=== PATIENT | female | born 1985 | race Caucasian/White ===

== ENCOUNTER 2018-06-28 11:27 | Emergency (ER) | payer OTHER, MEDICAID, SELFPAY ==
[2018-06-28 11:41] VITALS: BP 152/109; PULSE 99; RESP 20; TEMP 37.2; O2SAT 100; BMI 27.4
--- NOTE | 2018-06-28 12:06 | ED.UPPEXIN ---
HPI - Extremity Injury (Upper) <Katy Rios PA-C - Last Filed: 06/28/18 18:14> General Chief Complaint: Extremity Injury, Upper Stated Complaint: FELL, CHEST/ARM/BACK HURTS, HARD TO BREATH Time Seen by Provider: 06/28/18 11:50 Source: patient Mode of arrival: ambulatory Limitations: no limitations History of Present Illness HPI narrative: This 32-year-old female states that she fell yesterday, tripping on a wheelchair ramp and landed on her right side. She states that she took most of the impact on her right posterior shoulder, trunk, and upper arm area. She states she did not hit her head or pass out. She states that she really did not have significant pain at the time and went about her day. She states that last night, she started to have pain in her chest which was worse with taking a deep breath. She also has pain on the left side of her neck today that hurts with movement. She states that the chest pain was actually worse last night but still present today. Also exacerbated by movement. She denies any jackie dyspnea. She denies any weakness or paresthesia in the extremities or other new complaints. She took some aspirin this morning, has not taken other medications. Related Data Previous Rx's Medication Instructions Recorded cyclobenzaprine 10 mg PO Q8H PRN #14 tab 06/28/18 hydrocodone-acetaminophen [[place]] 1 tab PO Q6H PRN #8 tab 06/28/18 ibuprofen 800 mg PO TID PRN #30 tab 06/28/18 Allergies Allergy/AdvReac Type Severity Reaction Status Date / Time ampicillin [From UNASYN] Allergy Unknown Verified 06/28/18 11:44 sulbactam [From UNASYN] Allergy Unknown Verified 06/28/18 11:44 Review of Systems <Katy Rios PA-C - Last Filed: 06/28/18 18:14> Review of Systems All systems reviewed & are unremarkable except as noted in HPI and below Exam <Katy Riso PA-C - Last Filed: 06/28/18 18:14> Narrative Exam Narrative: GENERAL APPEARANCE: Patient appears somewhat uncomfortable, in no distress NECK/THYROID: Neck supple LUNGS: Clear to auscultation bilaterally, splinting noted CHEST: No sternal TTP HEART: Regular rate and rhythm without murmur, normal S1, S2, no S3 or S4. EXTREMITIES: No cyanosis or edema. NEUROLOGIC: Alert and oriented, normal speech, and coordination. MS: No tenderness over the cervical spine. Tender over the left mid to lateral posterior cervical strap musculature. Reduced neck rotation and lateral bend bilaterally secondary to tenderness. Normal range of motion of the upper extremities. Initial Vital Signs Initial Vital Signs: Vital Signs Temperature 98.9 F 06/28/18 11:41 Pulse Rate 99 H 06/28/18 11:41 Respiratory Rate 20 06/28/18 11:41 Blood Pressure 152/109 H 06/28/18 11:41 Pulse Oximetry 100 06/28/18 11:41 <Alessio Ware DO - Last Filed: 06/28/18 18:57> Initial Vital Signs Initial Vital Signs: Vital Signs Temperature 98.9 F 06/28/18 11:41 Pulse Rate 99 H 06/28/18 11:41 Respiratory Rate 20 06/28/18 11:41 Blood Pressure 152/109 H 06/28/18 11:41 Pulse Oximetry 100 06/28/18 11:41 Course <Katy Rios PA-C - Last Filed: 06/28/18 18:14> Additional Information: The patient is feeling better prior to departure. No acute findings on EKG or chest x-ray. She agrees to return if any acutely worsening symptoms Orders Ordered: ED Orders 06/28/18 12:13 XR chest 2V Stat 06/28/18 12:15 EKG-12 Lead Stat Discontinued Medications Ibuprofen (Advil) 800 mg PO NOW ONE Stop: 06/28/18 12:14 Last Admin: 06/28/18 12:17 Dose: 800 mg Vital Signs - 8 hr 06/28/18 11:41 06/28/18 12:42 06/28/18 13:15 Temperature 98.9 F 98.0 F 98.2 F Pulse Rate 99 H 85 88 Respiratory Rate 20 17 18 Blood Pressure 152/109 H 120/64 Blood Pressure [Right Arm] 125/88 Pulse Oximetry 100 100 99 <Alessio Ware DO - Last Filed: 06/28/18 18:57> Orders Ordered: ED Orders 06/28/18 12:13 XR chest 2V Stat 06/28/18 12:15 EKG-12 Lead Stat Discontinued Medications Ibuprofen (Advil) 800 mg PO NOW ONE Stop: 06/28/18 12:14 Last Admin: 06/28/18 12:17 Dose: 800 mg Vital Signs - 8 hr 06/28/18 11:41 06/28/18 12:42 06/28/18 13:15 Temperature 98.9 F 98.0 F 98.2 F Pulse Rate 99 H 85 88 Respiratory Rate 20 17 18 Blood Pressure 152/109 H 120/64 Blood Pressure [Right Arm] 125/88 Pulse Oximetry 100 100 99 MDM - Extremity Injury (Upper) <Katy Rios PA-C - Last Filed: 06/28/18 18:14> Imaging Data Chest x-ray: Radiologist's impression: [address] [address] XRay Report Signed Patient: Lamar Simmons#: [id number] : 1985Acct:[id number] Age/Sex: 32 / FDate of Service: 06/28/18 Loc: ED Accession Number: [id number] Procedure: XR chest 2V Ordering Provider: Katy Rios P.A-C PROCEDURE: XR CHEST 2V INDICATIONS: fall yesterday, pleuritic pain TECHNIQUE: 2 views of the chest were acquired. COMPARISON: [facility], , XR CXR 2 VIEW, 10/29/2000, 8:53. FINDINGS: Surgical changes and devices: None. Lungs and pleura: No pleural effusions or pneumothorax. Lungs are clear. Mediastinum: Mediastinal contours are normal. Heart size is normal. Bones and chest wall: No displaced rib fractures are seen. No suspicious bony abnormalities. Mild dextroconvex scoliotic curvature is seen. Soft tissues appear unremarkable. IMPRESSION: No displaced rib fracture or pneumothorax can be seen. Dictated by: Anuj Gil M.D. on 06/28/2018 at 11:33 Approved by: Anuj Gil M.D. on 06/28/2018 at 11:33 Discharge Plan Departure Patient Disposition: Home Clinical Impression: Chest wall pain, Acute strain of neck muscle Discharge Date/Time: 06/28/18 13:16 Interventions: ED Discharge Assessment Last Done: 06/28/18 13:15 Instructions: DI for Pleurisy Activity Restrictions/Additional Instructions: I have given clear instructions for pleurisy because they are similar to what we talked about for your chest wall pain (your lungs appear normal on the x-ray and there is no reason to think they are inflamed). I think that your pain today is due to falling and hitting your side (you probably strained muscles around and between your ribs). I think your neck pain is due to strain and awkward sleeping position. Please focus on taking deep breaths several times daily hugging the pillow to help keep your lungs expanded. Take the ibuprofen routinely every 8 hr. Add the muscle relaxant as needed for your neck and the pain pills as needed for your ribs (do not drive while taking either of these as they can make you sleepy). Return as we talked about if you have any acutely worsening symptoms such as feeling short of breath, wheezing, or numbness or weakness. Otherwise, please follow-up with your PCP in a few days for recheck Prescriptions: New cyclobenzaprine 10 mg tablet 10 mg PO Q8H PRN (Reason: muscle spasm/neck pain) Qty: 14 RF: 0 ibuprofen 800 mg tablet 800 mg PO TID PRN (Reason: pain) Qty: 30 RF: 0 hydrocodone-acetaminophen [[place]] 5-325 mg tablet 1 tab PO Q6H PRN (Reason: acute rib pain) Qty: 8 RF: 0 Referrals: MT. Sami MCCULLOUGH [Other] <Alessio Ware DO - Last Filed: 06/28/18 18:57> [facility] ED Attending [place] Attestation: I was immediately available in the department for consultation. Documentation has been reviewed. I agree with assessment and plan.
--- NOTE | 2018-06-28 12:13 | DI.RAD.S_ITS ---
PROCEDURE: XR CHEST 2V INDICATIONS: fall yesterday, pleuritic pain TECHNIQUE: 2 views of the chest were acquired. COMPARISON: [facility], , XR CXR 2 VIEW, 10/29/2000, 8:53. FINDINGS: Surgical changes and devices: None. Lungs and pleura: No pleural effusions or pneumothorax. Lungs are clear. Mediastinum: Mediastinal contours are normal. Heart size is normal. Bones and chest wall: No displaced rib fractures are seen. No suspicious bony abnormalities. Mild dextroconvex scoliotic curvature is seen. Soft tissues appear unremarkable. IMPRESSION: No displaced rib fracture or pneumothorax can be seen. Dictated by: Anuj Gil M.D. on 06/28/2018 at 11:33 Approved by: Anuj Gil M.D. on 06/28/2018 at 11:33
[2018-06-28] MEDS: IBUPROFEN 400 MG TABLET 800 MG PO (12:17)
--- NOTE | 2018-06-28 12:20 | PC.NURSE ---
Pt c/o CP and pain with inspiration. Called RT for EKG. no change in pain with palpation. Pt fell on her right side. All her pain is in left side starting in chest and moving to neck, shoulder, and left arm.
--- NOTE | 2018-06-28 12:21 | ED_ITS ---
Addendum entered and electronically signed by Kayt Rios P.A-C 06/28/18 18:14: EKG SHOWS NORMAL SINUS RHYTHM WITH RATE 78, NORMAL AXIS Original Note: HPI - Extremity Injury (Upper) <Katy Rios PA-C - Last Filed: 06/28/18 18:14> General Chief Complaint: Extremity Injury, Upper Stated Complaint: FELL, CHEST/ARM/BACK HURTS, HARD TO BREATH Time Seen by Provider: 06/28/18 11:50 Source: patient Mode of arrival: ambulatory Limitations: no limitations History of Present Illness HPI narrative: This 32-year-old female states that she fell yesterday, tripping on a wheelchair ramp and landed on her right side. She states that she took most of the impact on her right posterior shoulder, trunk, and upper arm area. She states she did not hit her head or pass out. She states that she really did not have significant pain at the time and went about her day. She states that last night, she started to have pain in her chest which was worse with taking a deep breath. She also has pain on the left side of her neck today that hurts with movement. She states that the chest pain was actually worse last night but still present today. Also exacerbated by movement. She denies any jackie dyspnea. She denies any weakness or paresthesia in the extremities or other new complaints. She took some aspirin this morning, has not taken other medications. Related Data Previous Rx's Medication Instructions Recorded cyclobenzaprine 10 mg PO Q8H PRN #14 tab 06/28/18 hydrocodone-acetaminophen [[place]] 1 tab PO Q6H PRN #8 tab 06/28/18 ibuprofen 800 mg PO TID PRN #30 tab 06/28/18 Allergies Allergy/AdvReac Type Severity Reaction Status Date / Time ampicillin [From UNASYN] Allergy Unknown Verified 06/28/18 11:44 sulbactam [From UNASYN] Allergy Unknown Verified 06/28/18 11:44 Review of Systems <Katy Rios PA-C - Last Filed: 06/28/18 18:14> Review of Systems All systems reviewed & are unremarkable except as noted in HPI and below Exam <Katy Rios PA-C - Last Filed: 06/28/18 18:14> Narrative Exam Narrative: GENERAL APPEARANCE: Patient appears somewhat uncomfortable, in no distress NECK/THYROID: Neck supple LUNGS: Clear to auscultation bilaterally, splinting noted CHEST: No sternal TTP HEART: Regular rate and rhythm without murmur, normal S1, S2, no S3 or S4. EXTREMITIES: No cyanosis or edema. NEUROLOGIC: Alert and oriented, normal speech, and coordination. MS: No tenderness over the cervical spine. Tender over the left mid to lateral posterior cervical strap musculature. Reduced neck rotation and lateral bend bilaterally secondary to tenderness. Normal range of motion of the upper extremities. Initial Vital Signs Initial Vital Signs: Vital Signs Temperature 98.9 F 06/28/18 11:41 Pulse Rate 99 H 06/28/18 11:41 Respiratory Rate 20 06/28/18 11:41 Blood Pressure 152/109 H 06/28/18 11:41 Pulse Oximetry 100 06/28/18 11:41 <Alessio Ware DO - Last Filed: 06/28/18 18:57> Initial Vital Signs Initial Vital Signs: Vital Signs Temperature 98.9 F 06/28/18 11:41 Pulse Rate 99 H 06/28/18 11:41 Respiratory Rate 20 06/28/18 11:41 Blood Pressure 152/109 H 06/28/18 11:41 Pulse Oximetry 100 06/28/18 11:41 Course <Katy Rios PA-C - Last Filed: 06/28/18 18:14> Additional Information: The patient is feeling better prior to departure. No acute findings on EKG or chest x-ray. She agrees to return if any acutely worsening symptoms Orders Ordered: ED Orders 06/28/18 12:13 XR chest 2V Stat 06/28/18 12:15 EKG-12 Lead Stat Discontinued Medications Ibuprofen (Advil) 800 mg PO NOW ONE Stop: 06/28/18 12:14 Last Admin: 06/28/18 12:17 Dose: 800 mg Vital Signs - 8 hr 06/28/18 11:41 06/28/18 12:42 06/28/18 13:15 Temperature 98.9 F 98.0 F 98.2 F Pulse Rate 99 H 85 88 Respiratory Rate 20 17 18 Blood Pressure 152/109 H 120/64 Blood Pressure [Right Arm] 125/88 Pulse Oximetry 100 100 99 <DO Awais Kelly Last Filed: 06/28/18 18:57> Orders Ordered: ED Orders 06/28/18 12:13 XR chest 2V Stat 06/28/18 12:15 EKG-12 Lead Stat Discontinued Medications Ibuprofen (Advil) 800 mg PO NOW ONE Stop: 06/28/18 12:14 Last Admin: 06/28/18 12:17 Dose: 800 mg Vital Signs - 8 hr 06/28/18 11:41 06/28/18 12:42 06/28/18 13:15 Temperature 98.9 F 98.0 F 98.2 F Pulse Rate 99 H 85 88 Respiratory Rate 20 17 18 Blood Pressure 152/109 H 120/64 Blood Pressure [Right Arm] 125/88 Pulse Oximetry 100 100 99 MDM - Extremity Injury (Upper) <Katy Rios PA-C - Last Filed: 06/28/18 18:14> Imaging Data Chest x-ray: Radiologist's impression: [place] [address] XRay Report Signed Patient: Lamar Simmons#: [id number] : 1985Acct:[id number] Age/Sex: 32 / FDate of Service: 06/28/18 Loc: ED Accession Number: [id number] Procedure: XR chest 2V Ordering Provider: Katy Rios P.A-C PROCEDURE: XR CHEST 2V INDICATIONS: fall yesterday, pleuritic pain TECHNIQUE: 2 views of the chest were acquired. COMPARISON: [facility], , XR CXR 2 VIEW, 10/29/2000, 8:53. FINDINGS: Surgical changes and devices: None. Lungs and pleura: No pleural effusions or pneumothorax. Lungs are clear. Mediastinum: Mediastinal contours are normal. Heart size is normal. Bones and chest wall: No displaced rib fractures are seen. No suspicious bony abnormalities. Mild dextroconvex scoliotic curvature is seen. Soft tissues appear unremarkable. IMPRESSION: No displaced rib fracture or pneumothorax can be seen. Dictated by: Anuj Gil M.D. on 06/28/2018 at 11:33 Approved by: Anuj Gil M.D. on 06/28/2018 at 11:33 Discharge Plan Departure Patient Disposition: Home Clinical Impression: Chest wall pain, Acute strain of neck muscle Discharge Date/Time: 06/28/18 13:16 Interventions: ED Discharge Assessment Last Done: 06/28/18 13:15 Instructions: DI for Pleurisy Activity Restrictions/Additional Instructions: I have given clear instructions for pleurisy because they are similar to what we talked about for your chest wall pain (your lungs appear normal on the x-ray and there is no reason to think they are inflamed). I think that your pain today is due to falling and hitting your side (you probably strained muscles around and between your ribs). I think your neck pain is due to strain and awkward sleeping position. Please focus on taking deep breaths several times daily hugging the pillow to help keep your lungs expanded. Take the ibuprofen routinely every 8 hr. Add the muscle relaxant as needed for your neck and the pain pills as needed for your ribs (do not drive while taking either of these as they can make you sleepy). Return as we talked about if you have any acutely worsening symptoms such as feeling short of breath, wheezing, or numbness or weakness. Otherwise, please follow-up with your PCP in a few days for recheck Prescriptions: New cyclobenzaprine 10 mg tablet 10 mg PO Q8H PRN (Reason: muscle spasm/neck pain) Qty: 14 RF: 0 ibuprofen 800 mg tablet 800 mg PO TID PRN (Reason: pain) Qty: 30 RF: 0 hydrocodone-acetaminophen [[place]] 5-325 mg tablet 1 tab PO Q6H PRN (Reason: acute rib pain) Qty: 8 RF: 0 Referrals: MT. Sami MCCULLOUGH [Other] <Alessio Ware DO - Last Filed: 06/28/18 18:57> [facility] [place] Attestation: I was immediately available in the department for consultation. Documentation has been reviewed. I agree with assessment and plan.
[2018-06-28 12:42] VITALS: BP 125/88; PULSE 85; RESP 17; TEMP 36.7; O2SAT 100
[2018-06-28 13:15] VITALS: BP 120/64; PULSE 88; RESP 18; TEMP 36.8; O2SAT 99
== END 2018-06-28 13:16 | disposition home or self-care (01) ==
PROVIDERS: Emergency Provider Internal Medicine
DX: R07.89 Other chest pain (principal); S16.1XXA Strain of muscle, fascia and tendon at neck level, initial encounter; W01.0XXA Fall on same level from slipping, tripping and stumbling without subsequent striking against object, initial encounter
CPT/HCPCS: 71046; 93005; 99282; 99284

== ENCOUNTER 2018-08-06 14:25 | Emergency (ER) | payer OTHER, MEDICAID, SELFPAY ==
[2018-08-06 14:38] VITALS: BP 160/112; PULSE 100; RESP 15; TEMP 36.7; O2SAT 99; BMI 26.6
--- NOTE | 2018-08-06 16:19 | ED_ITS ---
HPI - Wound/Laceration <DEVIN Brown Last Filed: 08/06/18 21:49> General Chief Complaint: Wound/Laceration Stated Complaint: Cut finger Time Seen by Provider: 08/06/18 16:16 Source: patient Mode of arrival: ambulatory Limitations: no limitations History of Present Illness HPI narrative: Patient states that she went to start a [employer] and the kick start stuck, causing able to push back and hit her finger. She has some lacerations that were bleeding quite a bit initially. She denies any other injury. It has been 5-10 years since her last tetanus vaccine. Related Data Home Medications Medication Instructions Recorded Confirmed No Known Home Medications 08/06/18 08/06/18 Allergies Allergy/AdvReac Type Severity Reaction Status Date / Time ampicillin [From UNASYN] Allergy Unknown Verified 08/06/18 14:38 sulbactam [From UNASYN] Allergy Unknown Verified 08/06/18 14:38 Review of Systems <DEVIN Brown Last Filed: 08/06/18 21:49> Review of Systems All systems reviewed & are unremarkable except as noted in HPI and below Exam <DEVIN Brown Last Filed: 08/06/18 21:49> Narrative Exam Narrative: GENERAL APPEARANCE: Patient sitting comfortably, in no distress. LUNGS: Clear to auscultation bilaterally. HEART: Rate and rhythm regular without murmur, normal S1 and S2, no S3 or S4. DERMATOLOGIC: Left middle finger just proximal to the PIP there is a 1 cm curvilinear shallow laceration with no gap, appears to be no more than 2 mm in depth. There is a 2nd superficial laceration on the dorsal surface 6 mm in length with no gap appears to be less than 1 mm in depth. NEUROVASCULAR: Left hand fingers are warm and pink with brisk cap refill, sensation is grossly intact MUSCULOSKELETAL: Left middle finger a tendon strength is intact against resistance in all harmon Initial Vital Signs Initial Vital Signs: Vital Signs Temperature 98.0 F 08/06/18 14:38 Pulse Rate 100 H 08/06/18 14:38 Respiratory Rate 15 08/06/18 14:38 Blood Pressure 160/112 H 08/06/18 14:38 Pulse Oximetry 99 08/06/18 14:38 <Martita Cyr DO - Last Filed: 12/22/18 20:12> Initial Vital Signs Initial Vital Signs: Vital Signs Temperature 98.0 F 08/06/18 14:38 Pulse Rate 100 H 08/06/18 14:38 Respiratory Rate 15 08/06/18 14:38 Blood Pressure 160/112 H 08/06/18 14:38 Pulse Oximetry 99 08/06/18 14:38 Course <Katy Rios PA-C - Last Filed: 08/06/18 21:49> Additional Information: Patient's avulsions appear superficial with no gap. Thoroughly cleaned and scrubbed with a surgical brush, no foreign body visible following cleaning. These were Steri-Strips and placed in a splint to aid in healing. Orders Ordered: Discontinued Medications Diphtheria/Tetanus/Acell Pertussis (Adacel) 0.5 ml IM .ONCE ONE Stop: 08/06/18 14:42 Last Admin: 08/06/18 16:38 Dose: 0.5 ml Vital Signs - 8 hr 08/06/18 14:38 Temperature 98.0 F Pulse Rate 100 H Respiratory Rate 15 Blood Pressure 160/112 H Pulse Oximetry 99 <Martita Cyr DO - Last Filed: 08/10/18 20:12> Orders Ordered: Discontinued Medications Diphtheria/Tetanus/Acell Pertussis (Adacel) 0.5 ml IM .ONCE ONE Stop: 08/06/18 14:42 Last Admin: 08/06/18 16:38 Dose: 0.5 ml Vital Signs - 8 hr 08/06/18 14:38 Temperature 98.0 F Pulse Rate 100 H Respiratory Rate 15 Blood Pressure 160/112 H Pulse Oximetry 99 Discharge Plan Departure Patient Disposition: Home Clinical Impression: Laceration of finger of left hand Discharge Date/Time: 08/06/18 17:55 Interventions: ED Discharge Assessment Last Done: 08/06/18 17:22 Instructions: DI for Avulsion Laceration (Not Requiring Sutures) Activity Restrictions/Additional Instructions: The cuts on your fingers do not appear to have a big gap (they are what we call an avulsion or little flap) where the skin is able to come together. This should heal with the steri-strips we have put on as long as you keep pressure off of the area. Keep your finger in the splint at all times though it is okay to rinse off quickly when you shower and pat dry. The wounds looked well cleaned , but please monitor for any signs of infection and see your PCP, urgent care, or return to ED if any, such as redness, pus draining, or fever. The splint will likely need to stay on for 7-10 days until this is healed. Prescriptions: No Action No Known Home Medications RF: 0 Referrals: Kingston Marcelo, Ramana Gallardo [Other] <Martita Cyr DO - Last Filed: 08/10/18 20:12> [facility] ED Attending Cosign[employer] Attestation: I was immediately available in the department for consultation. Documentation has been reviewed. I agree with assessment and plan.
[2018-08-06] MEDS: TET,DIPH,PERTUSS(ACELL),VAC/PF 0.5 ML SYRINGE IM (16:38)
== END 2018-08-06 17:55 | disposition home or self-care (01) ==
PROVIDERS: Emergency Provider Internal Medicine
DX: S61.213A Laceration without foreign body of left middle finger without damage to nail, initial encounter (principal); W26.8XXA Contact with other sharp object(s), not elsewhere classified, initial encounter
CPT/HCPCS: 29130; 90471; 99283; 90715

== ENCOUNTER 2018-08-27 19:54 | Emergency (ER) | payer OTHER, MEDICAID, SELFPAY ==
[2018-08-27 20:00] VITALS: BP 171/108; PULSE 98; RESP 14; TEMP 36.7; O2SAT 100; BMI 27.4
[2018-08-27 20:30] VITALS: BP 171/108; PULSE 98; RESP 14; TEMP 36.7; O2SAT 100; BMI 27.4
--- NOTE | 2018-08-27 20:30 | ED_ITS ---
HPI - Dental/Oral <Katy Rios PA-C - Last Filed: 08/27/18 22:32> General Chief complaint: Dental/Oral Stated complaint: ABSCESS OF JAW Time Seen by Provider: 08/27/18 20:24 Source: patient Mode of arrival: ambulatory Limitations: no limitations History of Present Illness HPI Narrative: This 32-year-old female comes in due to concern for possible dental abscess. She states that she awoke this morning with swelling on the left lower jaw area and a lot of tenderness. 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 She states that she had dental work done more than 10 years ago that was only supposed to last 8 years, and she does not remember biting down on the thing hard, but thinks that she could have lost part of a filling. She has not had a fever today. She states that she does have some pain in her ear, but has not been sick or had any other upper respiratory symptoms such as cough or sore throat. She does not have a dentist currently. Related Data Previous Rx's Medication Instructions Recorded amoxicillin-pot clavulanate 1 tab PO Q12H #14 tab 08/27/18 [Augmentin] ibuprofen 800 mg PO Q8H PRN #30 tab 08/27/18 Allergies Allergy/AdvReac Type Severity Reaction Status Date / Time No Known Drug Allergies Allergy Verified 08/27/18 20:03 Review of Systems <Katy Rios PA-C - Last Filed: 08/27/18 22:32> Review of Systems All systems reviewed & are unremarkable except as noted in HPI and below Exam <Katy Rios PA-C - Last Filed: 08/27/18 22:32> Narrative Exam Narrative: GENERAL APPEARANCE: Patient sitting comfortably, in no distress. HEAD: No sinus TTP. EYES: PERRL, EOMI. EARS: Normal auditory canals, TMS intact with normal light reflexes. ORAL CAVITY:Poor dentition, multiple broken teeth, left 2nd molar black centrally appears to have repair. No tenderness in the tooth itself, but the surrounding gum line is mildly erythematous on both surfaces vs. other teeth. No edema of the gum tissue, no circumscribed area of swelling in the check or jaw. No drainage THROAT: Clear. NECK/THYROID: Neck supple, full range of motion, no cervical lymphadenopathy. LUNGS: Clear to auscultation bilaterally, clear to percussion, no cough on exam. HEART: RRR without murmur, nl S1, S2, no S3 or S4. Initial Vital Signs Initial Vital Signs: Vital Signs Temperature 98.0 F 08/27/18 20:00 Pulse Rate 98 H 08/27/18 20:00 Respiratory Rate 14 08/27/18 20:00 Blood Pressure 171/108 H 08/27/18 20:00 Pulse Oximetry 100 08/27/18 20:00 <Landry Avelar DO - Last Filed: 08/27/18 22:50> Initial Vital Signs Initial Vital Signs: Vital Signs Temperature 98.0 F 08/27/18 20:00 Pulse Rate 98 H 08/27/18 20:00 Respiratory Rate 14 08/27/18 20:00 Blood Pressure 171/108 H 08/27/18 20:00 Pulse Oximetry 100 08/27/18 20:00 Course <Katy Rios PA-C - Last Filed: 08/27/18 22:32> Orders Ordered: Discontinued Medications Amoxicillin/Clavulanate Potassium (Augmentin 875-125 Mg) 1 tab PO NOW ONE Stop: 08/27/18 20:49 Last Admin: 08/27/18 20:58 Dose: 1 tab Ibuprofen (Advil) 800 mg PO NOW ONE Stop: 08/27/18 20:49 Last Admin: 08/27/18 20:57 Dose: 800 mg Vital Signs - 8 hr 08/27/18 20:00 08/27/18 20:30 08/27/18 21:10 Temperature 98.0 F 98.0 F 97.9 F Pulse Rate 98 H 98 H 76 Respiratory Rate 14 14 Blood Pressure 171/108 H 171/108 H Blood Pressure [Left Arm] 173/119 H Pulse Oximetry 100 100 100 <DO Awais Montemayor Last Filed: 08/27/18 22:50> Orders Ordered: Discontinued Medications Amoxicillin/Clavulanate Potassium (Augmentin 875-125 Mg) 1 tab PO NOW ONE Stop: 08/27/18 20:49 Last Admin: 08/27/18 20:58 Dose: 1 tab Ibuprofen (Advil) 800 mg PO NOW ONE Stop: 08/27/18 20:49 Last Admin: 01/08/19 20:57 Dose: 800 mg Vital Signs - 8 hr 08/27/18 20:00 08/27/18 20:30 08/27/18 21:10 Temperature 98.0 F 98.0 F 97.9 F Pulse Rate 98 H 98 H 76 Respiratory Rate 14 14 Blood Pressure 171/108 H 171/108 H Blood Pressure [Left Arm] 173/119 H Pulse Oximetry 100 100 100 Discharge Plan Departure Patient Disposition: Home Clinical Impression: Dental infection, Dental caries Discharge Date/Time: 08/27/18 21:11 Interventions: ED Discharge Assessment Last Done: 08/27/18 21:16 Instructions: DI for Dental Pain Activity Restrictions/Additional Instructions: Please call [facility] 1st thing in the morning and let them know that you were referred from the emergency room and need to follow up for your infection as well as your broken teeth and dental work. Take the next dose of antibiotic in the morning. Continue Ibuprofen 800mg every 8 hours for pain and swelling. You can take tylenol in addition if needed and use Orajel over the counter if you wish. I have sent prescriptions for the ibuprofen and antibiotic to your pharmacy. Prescriptions: New ibuprofen 800 mg tablet 800 mg PO Q8H PRN (Reason: pain) Qty: 30 RF: 0 amoxicillin-pot clavulanate [Augmentin] 875-125 mg tablet 1 tab PO Q12H Qty: 14 RF: 0 Referrals: Ramana Syed [Other] <Landry Avelar DO - Last Filed: 08/27/18 22:50> [facility] [place] Attestation: I was available for consultation during this patient's emergency department encounter
[2018-08-27] MEDS: IBUPROFEN 400 MG TABLET 800 MG PO (20:57)
[2018-08-27] MEDS: AMOXICILLIN/CLAV 875/125 MG 1 TAB PO (20:58)
[2018-08-27 21:10] VITALS: BP 173/119; PULSE 76; TEMP 36.6; O2SAT 100
== END 2018-08-27 21:11 | disposition home or self-care (01) ==
PROVIDERS: Emergency Provider Internal Medicine
DX: K04.7 Periapical abscess without sinus (principal)
CPT/HCPCS: 99282; 99283

== ENCOUNTER 2019-04-10 15:44 | Emergency (ER) | payer OTHER, MEDICAID, SELFPAY ==
[2019-04-10 15:50] VITALS: BP 154/103; PULSE 102; RESP 22; TEMP 36.4; O2SAT 100; BMI 29.1
--- NOTE | 2019-04-10 16:07 | DI.RAD.S_ITS ---
PROCEDURE: XR CHEST 2V INDICATIONS: exposed to rat feces TECHNIQUE: 2 views of the chest were acquired. COMPARISON: [facility], , XR CHEST 2V, 06/28/2018, 12:20. FINDINGS: Surgical changes and devices: None. Lungs and pleura: Lungs are clear. No pleural effusions or pneumothorax. Mediastinum: Mediastinal contours are normal. Heart size is normal. Bones and chest wall: No suspicious bony abnormalities. Soft tissues appear unremarkable. IMPRESSION: Stable chest. No acute cardiopulmonary process is evident. Dictated by: Padilla Foley M.D. on 04/10/2019 at 15:52 Approved by: Padilla Foley M.D. on 04/10/2019 at 15:55
--- NOTE | 2019-04-10 16:13 | PC.NURSE ---
Call to poison control. Orders per their suggestion
[2019-04-10 16:27] LABS: Add Manual Diff / Slide Review NO; Basophils Absolute Auto 100 /uL (0-100); Basophils Percent Auto 1.2 % (0-2); Eosinophils Absolute Auto 100 /uL (0-450); Eosinophils Percent Auto 2.1 % (2-4); Hematocrit 43.2 % (36-46); Hemoglobin 14.6 g/dL (12.0-16.0); Lymphocytes Absolute Auto 1900 /uL (1100-4500); Mean Corpuscular HGB Conc 33.7 % (30-36); Mean Corpuscular Hemoglobin 30.3 PG (26-34); Mean Corpuscular Volume 89.9 fL (80-100); Monocytes Absolute Auto 500 /uL (0-900); Monocytes Percent Auto 11.9 % (3-14); Neutrophils Absolute Auto 1900 /uL (1500-7000); Neutrophils Percent Auto 41.8 % (50-75); Platelet Count 281 X10^3/uL (150-400); Red Cell Distribution Width 12.8 % (11.6-14.8); White Blood Cell Count 4.5 X10^3/uL (4.5-11.0)
[2019-04-10 16:36] LABS: Alanine Aminotransferase 12 IU/L (9-52); Albumin 4.2 g/dL (3.5-5.0); Albumin Globulin Ratio 1.3 (1.0-2.8); Alkaline Phosphatase 60 U/L (38-126); Aspartate Aminotransferase 17 IU/L (14-36); BUN Creatinine Ratio 11.3 (6-22); Bilirubin Total 0.3 mg/dL (0.2-1.3); Blood Urea Nitrogen 9 mg/dL (7-17); Carbon Dioxide 29 mmol/L (22-32); Chloride 101 mmol/L (98-107); Estimated Glomerular Filt Rate > 60.0 mL/min (>60); Globulin 3.3 g/dL (1.7-4.1); Glucose 104 mg/dL (70-100); HEMOLYSIS < 15 (0-50); Potassium 3.7 mmol/L (3.4-5.1); Sodium 138 mmol/L (137-145); Total Protein 7.5 g/dL (6.3-8.2)
[2019-04-10 17:33] VITALS: BP 152/102; PULSE 94; RESP 18; O2SAT 99
--- NOTE | 2019-04-10 17:33 | ED.GENADULT ---
HPI - General Adult General Chief complaint: Environmental Exposure Stated complaint: STATES EXPOSED TO RAT FECES Time Seen by Provider: 04/10/19 17:12 Source: patient Mode of arrival: ambulatory Limitations: no limitations History of Present Illness HPI narrative: Patient is a 33-year-old female comes in with complaint of exposure to wrap the sees. Patient states that she is living in a house that has a wrap problem. 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 She states that there is a lot of feces in certain locations. Patient states she noticed yesterday that her eyes seem injected and irritated. She wears contacts but not daily. She has not worn on for about a week. She denies vision changes. No real discharge but a little bit of slight crusting. Patient has not had any other upper respiratory symptoms, she sometimes feels a little short of breath. She denies any vomiting, no diarrhea constipation no skin changes or rashes. Patient has not been in contact with the health department. Related Data Previous Rx's Medication Instructions Recorded ofloxacin [Ocuflox] 2 drop EYE-BOTH Q4H 7 Days #5 ml 04/10/19 Allergies Allergy/AdvReac Type Severity Reaction Status Date / Time No Known Drug Allergies Allergy Verified 08/27/18 20:03 Review of Systems Review of Systems ROS Unobtainable: All systems reviewed & are unremarkable except as noted in HPI and below Constitutional Denies chills, Denies fever(s), Denies lethargy and Denies weakness Eyes Reports eye discharge, Reports irritation, Reports itchy eyes, Reports requires corrective lenses (contacts sometimes.) and Denies spots in vision Neurologic Denies weakness Allergic/Immunologic Reports itchy eyes [facility] Medical History Healthy female adult (Chronic) Surgical History History of D&C (Resolved) Family History (Updated 08/27/18 @ 20:53 by Katy Rios PA-C) Other Family history non-contributory Social History Smoking Status: Current every day smoker Social History Smoking Status: Current every day smoker Exam Narrative Exam Narrative: GEN: well nourished, well appearing female, alert and oriented x 3, patient appears to be in no acute distress. HEENT: Atraumatic, pupils are equal round reactive to light, conjunctivae are slightly injected bilaterally, no discharge noted, no matting, extraocular movements are intact, nares are clear, TMs are clear with no fluid, there is no conjunctival pallor. Throat is clear without any exudates, erythema, tonsillar enlargement or uvular deviation HEART: Regular rate and rhythm without murmur, clicks, rubs. LUNGS:Lungs clear to auscultation, no wheezes, rales, crackles, chest moves symmetrically ABD:bowel sounds normal, soft, non-tender, no guarding, rebound, rigidity, no masses noted, no hepatosplenomegaly MSCL: Non-tender, no muscle atrophy, muscles strength 5/5 upper and lower extremities, full range of motion, normal gait NEURO:CN 2-12 intact, sensation normal Initial Vital Signs Initial Vital Signs: Vital Signs Temperature 97.5 F L 04/10/19 15:50 Pulse Rate 102 H 04/10/19 15:50 Respiratory Rate 22 04/10/19 15:50 Blood Pressure 154/103 H 04/10/19 15:50 Pulse Oximetry 100 04/10/19 15:50 Course Orders Ordered: ED Orders 04/10/19 16:07 CXR [XR chest 2V] Stat 04/10/19 16:15 Complete Blood Count AUTO DIFF Stat Comprehensive Metabolic Panel Stat Vital Signs - 8 hr 04/10/19 15:50 04/10/19 17:33 Temperature 97.5 F L Pulse Rate 102 H 94 H Respiratory Rate 22 18 Blood Pressure 154/103 H Blood Pressure [Left Arm] 152/102 H Pulse Oximetry 100 99 Medical Decision Making Lab Data Lab results reviewed: Yes I reviewed the patient's lab results. Result diagrams: 04/10/19 16:15 04/10/19 16:15 Lab Results 04/10/19 04/10/19 Range/Units 16:15 16:15 WBC 4.5 (4.5-11.0) X10^3/uL RBC 4.80 (4.0-5.2) X10^6/uL Hgb 14.6 (12.0-16.0) g/dL Hct 43.2 (36-46) % MCV 89.9 (80-100) fL MCH 30.3 (26-34) PG MCHC 33.7 (30-36) % RDW 12.8 (11.6-14.8) % Plt Count 281 (150-400) X10^3/uL Neut % (Auto) 41.8 L (50-75) % Lymph % (Auto) 43.0 H (25-40) % Benzie % (Auto) 11.9 (3-14) % Eos % (Auto) 2.1 (2-4) % Baso % (Auto) 1.2 (0-2) % Neut # (Auto) 1900 (1673-0758) /uL Lymph # (Auto) 1900 (1633-6069) /uL Benzie # (Auto) 500 (0-900) /uL Eos # (Auto) 100 (0-450) /uL Baso # (Auto) 100 (0-100) /uL Sodium 138 (137-145) mmol/L Potassium 3.7 (3.4-5.1) mmol/L Chloride 101 (98-107) mmol/L Carbon Dioxide 29 (22-32) mmol/L BUN 9 (7-17) mg/dL Creatinine 0.80 (0.52-1.04) mg/dL Estimated GFR > 60.0 (>60) mL/min BUN/Creatinine Ratio 11.3 (6-22) Glucose 104 H (70-100) mg/dL Calcium 9.0 (8.4-10.2) mg/dL Total Bilirubin 0.3 (0.2-1.3) mg/dL AST 17 (14-36) IU/L ALT 12 (9-52) IU/L Alkaline Phosphatase 60 (38-126) U/L Total Protein 7.5 (6.3-8.2) g/dL Albumin 4.2 (3.5-5.0) g/dL Globulin 3.3 (1.7-4.1) g/dL Albumin/Globulin Ratio 1.3 (1.0-2.8) Imaging Data Chest x-ray: Radiologist's impression: [address] [address] XRay Report Signed Patient: Lamar Simmons#: [id number] : 1985Acct:[id number] Age/Sex: 33 / FDate of Service: 04/10/19 Loc: ED Accession Number: [id number] Procedure: XR chest 2V Ordering Provider: Rosa Cha D.O. PROCEDURE: XR CHEST 2V INDICATIONS: exposed to rat feces TECHNIQUE: 2 views of the chest were acquired. COMPARISON: [facility], XR CHEST 2V, 06/28/2018, 12:20. FINDINGS: Surgical changes and devices: None. Lungs and pleura: Lungs are clear. No pleural effusions or pneumothorax. Mediastinum: Mediastinal contours are normal. Heart size is normal. Bones and chest wall: No suspicious bony abnormalities. Soft tissues appear unremarkable. IMPRESSION: Stable chest. No acute cardiopulmonary process is evident. Dictated by: Padilla Foley M.D. on 04/10/2019 at 15:52 Approved by: Padilla Foley M.D. on 04/10/2019 at 15:55 Discharge Plan Departure Patient Disposition: Home Clinical Impression: Conjunctivitis Qualifiers: Conjunctivitis type: acute Acute conjunctivitis type: unspecified Laterality: bilateral Qualified Code(s): H10.33 - Unspecified acute conjunctivitis, bilateral Discharge Date/Time: 04/10/19 17:57 Interventions: ED Discharge Assessment Last Done: 04/10/19 17:57 Instructions: Conjunctivitis Activity Restrictions/Additional Instructions: Follow up with Ophthalmology in the next 24-48 hours for recheck. You may return to the emergency department at any point for re-evaluation. Start antibiotic eye drops and use as directed for the next 7 days. Your prescription was sent to [facility] in [place]. Do not wear contacts until your symptoms have completely resolved and you been evaluated. Return to the emergency department for worsening symptoms, decreased or new vision changes, increasing redness, new discharge, swelling of the eyes or face, or other new or concerning symptoms. Prescriptions: New ofloxacin [Ocuflox] 0.3 % drops 2 drop EYE-BOTH Q4H 7 Days Qty: 5 RF: 0 Referrals: Labmert Hood MD [Physician] -
--- NOTE | 2019-04-10 17:49 | ED_ITS ---
HPI - General Adult General Chief complaint: Environmental Exposure Stated complaint: STATES EXPOSED TO RAT FECES Time Seen by Provider: 04/10/19 17:12 Source: patient Mode of arrival: ambulatory Limitations: no limitations History of Present Illness HPI narrative: Patient is a 33-year-old female comes in with complaint of exposure to wrap the sees. Patient states that she is living in a house that has a wrap problem. They have tried to work with the owners [employer] but they have not been interested in getting an electrical tester battery. She states that there is a lot of feces in certain locations. Patient states she noticed yesterday that her eyes seem injected and irritated. She wears contacts but not daily. She has not worn on for about a week. She denies vision changes. No real discharge but a little bit of slight crusting. Patient has not had any other upper respiratory symptoms, she sometimes feels a little short of breath. She denies any vomiting, no diarrhea constipation no skin changes or rashes. Patient has not been in contact with the health department. Related Data Previous Rx's Medication Instructions Recorded ofloxacin [Ocuflox] 2 drop EYE-BOTH Q4H 7 Days #5 ml 04/10/19 Allergies Allergy/AdvReac Type Severity Reaction Status Date / Time No Known Drug Allergies Allergy Verified 08/27/18 20:03 Review of Systems Review of Systems ROS Unobtainable: All systems reviewed & are unremarkable except as noted in HPI and below Constitutional Denies chills, Denies fever(s), Denies lethargy and Denies weakness Eyes Reports eye discharge, Reports irritation, Reports itchy eyes, Reports requires corrective lenses (contacts sometimes.) and Denies spots in vision Neurologic Denies weakness Allergic/Immunologic Reports itchy eyes [facility] Medical History Healthy female adult (Chronic) Surgical History History of D&C (Resolved) Family History (Updated 08/27/18 @ 20:53 by Katy Rios PA-C) Other Family history non-contributory Social History Smoking Status: Current every day smoker Social History Smoking Status: Current every day smoker Exam Narrative Exam Narrative: GEN: well nourished, well appearing female, alert and oriented x 3, patient appears to be in no acute distress. HEENT: Atraumatic, pupils are equal round reactive to light, conjunctivae are slightly injected bilaterally, no discharge noted, no matting, extraocular move ments are intact, nares are clear, TMs are clear with no fluid, there is no conjunctival pallor. Throat is clear without any exudates, erythema, tonsillar enlargement or uvular deviation HEART: Regular rate and rhythm without murmur, clicks, rubs. LUNGS:Lungs clear to auscultation, no wheezes, rales, crackles, chest moves symmetrically ABD:bowel sounds normal, soft, non-tender, no guarding, rebound, rigidity, no masses noted, no hepatosplenomegaly MSCL: Non-tender, no muscle atrophy, muscles strength 5/5 upper and lower extremities, full range of motion, normal gait NEURO:CN 2-12 intact, sensation normal Initial Vital Signs Initial Vital Signs: Vital Signs Temperature 97.5 F L 04/10/19 15:50 Pulse Rate 102 H 04/10/19 15:50 Respiratory Rate 22 04/10/19 15:50 Blood Pressure 154/103 H 04/10/19 15:50 Pulse Oximetry 100 04/10/19 15:50 Course Orders Ordered: ED Orders 04/10/19 16:07 CXR [XR chest 2V] Stat 04/10/19 16:15 Complete Blood Count AUTO DIFF Stat Comprehensive Metabolic Panel Stat Vital Signs - 8 hr 04/10/19 15:50 04/10/19 17:33 Temperature 97.5 F L Pulse Rate 102 H 94 H Respiratory Rate 22 18 Blood Pressure 154/103 H Blood Pressure [Left Arm] 152/102 H Pulse Oximetry 100 99 Medical Decision Making Lab Data Lab results reviewed: Yes I reviewed the patient's lab results. Result diagrams: 04/10/19 16:15 04/10/19 16:15 Lab Results 04/10/19 04/10/19 Range/Units 16:15 16:15 WBC 4.5 (4.5-11.0) X10^3/uL RBC 4.80 (4.0-5.2) X10^6/uL Hgb 14.6 (12.0-16.0) g/dL Hct 43.2 (36-46) % MCV 89.9 (80-100) fL MCH 30.3 (26-34) PG MCHC 33.7 (30-36) % RDW 12.8 (11.6-14.8) % Plt Count 281 (150-400) X10^3/uL Neut % (Auto) 41.8 L (50-75) % Lymph % (Auto) 43.0 H (25-40) % Colbert % (Auto) 11.9 (3-14) % Eos % (Auto) 2.1 (2-4) % Baso % (Auto) 1.2 (0-2) % Neut # (Auto) 1900 (7729-1260) /uL Lymph # (Auto) 1900 (7127-9945) /uL Colbert # (Auto) 500 (0-900) /uL Eos # (Auto) 100 (0-450) /uL Baso # (Auto) 100 (0-100) /uL Sodium 138 (137-145) mmol/L Potassium 3.7 (3.4-5.1) mmol/L Chloride 101 (98-107) mmol/L Carbon Dioxide 29 (22-32) mmol/L BUN 9 (7-17) mg/dL Creatinine 0.80 (0.52-1.04) mg/dL Estimated GFR > 60.0 (>60) mL/min BUN/Creatinine Ratio 11.3 (6-22) Glucose 104 H (70-100) mg/dL Calcium 9.0 (8.4-10.2) mg/dL Total Bilirubin 0.3 (0.2-1.3) mg/dL AST 17 (14-36) IU/L ALT 12 (9-52) IU/L Alkaline Phosphatase 60 (38-126) U/L Total Protein 7.5 (6.3-8.2) g/dL Albumin 4.2 (3.5-5.0) g/dL Globulin 3.3 (1.7-4.1) g/dL Albumin/Globulin Ratio 1.3 (1.0-2.8) Imaging Data Chest x-ray: Radiologist's impression: [address] [address] XRay Report Signed Patient: Lamar Simmons#: [id number] : 1985Acct:[id number] Age/Sex: 33 / FDate of Service: 04/10/19 Loc: ED Accession Number: [id number] Procedure: XR chest 2V Ordering Provider: Rosa Cha D.O. PROCEDURE: XR CHEST 2V INDICATIONS: exposed to rat feces TECHNIQUE: 2 views of the chest were acquired. COMPARISON: [facility], XR CHEST 2V, 06/28/2018, 12:20. FINDINGS: Surgical changes and devices: None. Lungs and pleura: Lungs are clear. No pleural effusions or pneumothorax. Mediastinum: Mediastinal contours are normal. Heart size is normal. Bones and chest wall: No suspicious bony abnormalities. Soft tissues appear unremarkable. IMPRESSION: Stable chest. No acute cardiopulmonary process is evident. Dictated by: Padilla Foley M.D. on 04/10/2019 at 15:52 Approved by: Padilla Foley M.D. on 04/10/2019 at 15:55 Discharge Plan Departure Patient Disposition: Home Clinical Impression: Conjunctivitis Qualifiers: Conjunctivitis type: acute Acute conjunctivitis type: unspecified Laterality: bilateral Qualified Code(s): H10.33 - Unspecified acute conjunctivitis, b ilateral Discharge Date/Time: 04/10/19 17:57 Interventions: ED Discharge Assessment Last Done: 04/10/19 17:57 Instructions: Conjunctivitis Activity Restrictions/Additional Instructions: Follow up with Ophthalmology in the next 24-48 hours for recheck. You may return to the emergency department at any point for re-evaluation. Start antibiotic eye drops and use as directed for the next 7 days. Your prescription was sent to [facility] in [place]. Do not wear contacts until your symptoms have completely resolved and you been evaluated. Return to the emergency department for worsening symptoms, decreased or new vision changes, increasing redness, new discharge, swelling of the eyes or face, or other new or concerning symptoms. Prescriptions: New ofloxacin [Ocuflox] 0.3 % drops 2 drop EYE-BOTH Q4H 7 Days Qty: 5 RF: 0 Referrals: Lambert Hood MD [Physician] -
== END 2019-04-10 17:57 | disposition home or self-care (01) ==
PROVIDERS: Emergency Provider Emergency Medicine
DX: H10.33 Unspecified acute conjunctivitis, bilateral (principal)
CPT/HCPCS: 36415; 71046; 80053; 85025; 99282; 99285

== ENCOUNTER 2019-05-25 14:37 | Emergency (ER) | payer OTHER, MEDICAID, SELFPAY ==
[2019-05-25 14:45] VITALS: BP 155/108; PULSE 129; RESP 20; TEMP 37.8; O2SAT 100
[2019-05-25 15:05] VITALS: TEMP 37.8
[2019-05-25] MEDS: ACETAMINOPHEN 325 MG TABLET 975 MG PO (15:05)
[2019-05-25] MEDS: IBUPROFEN 400 MG TABLET 800 MG PO (15:05)
[2019-05-25 15:11] LABS: Influenza A and B by PCR Rapid Negative (Negative)
--- NOTE | 2019-05-25 15:24 | ED_ITS ---
HPI - URI/Sore Throat <MELITON Flores - Last Filed: 05/25/19 15:42> General Chief Complaint: Upper Respiratory Symptoms Stated Complaint: tonsils swollen,body aches Time Seen by Provider: 05/25/19 14:58 Source: patient Mode of arrival: Ambulatory Limitations: no limitations History of Present Illness HPI Narrative: The patient is a 33-year-old female current smoker with history of scabies who presents with a chief complaint of fevers and sore throat for the past 3 days. She complains of body aches as well. She denies any nausea vomiting or diarrhea. She has not taken anything for the fever. She has not taken anything to feel better. She is concerned about strep throat or flu. No specific sick exposures. She denies any abdominal pain. She denies any cough or congestion. She does complain of some ear pain. Related Data Previous Rx's Medication Instructions Recorded amoxicillin 875 mg PO BID #20 tab 05/25/19 Allergies Allergy/AdvReac Type Severity Reaction Status Date / Time No Known Drug Allergies Allergy Verified 08/27/18 20:03 Review of Systems <MELITON Flores - Last Filed: 05/25/19 15:42> Review of Systems Narrative: GENERAL: See HPI HEENT: See HPI RESPIRATORY: Denies dyspnea, cough, wheezing, hemoptysis, sputum. CARDIOVASCULAR: Denies chest pain, palpitations, orthopnea, edema, GASTROINTESTINAL: Denies nausea, vomiting, abdominal pain, diarrhea, constipation, melena. : Denies dysuria, frequency, incontinence, hematuria, urinary retention. MUSCULOSKELETAL: denies weakness, joint pain, or bony pain SKIN: Denies rash, skin lesions, or other NEUROLOGIC: Denies weakness, headache, numbness, change in speech, confusion, seizures, incoordination. PSYCHIATRIC: No concerning psychosocial issues. 12 point review of systems is negative except for those stated above PFSH <MELITON Flores - Last Filed: 05/25/19 15:42> Medical History Healthy female adult (Chronic) Surgical History History of D&C (Resolved) Family History (Updated 08/27/18 @ 20:53 by Katy Rios PA-C) Other Family history non-contributory Social History Smoking Status: Current every day smoker Family History Other Family history non-contributory Social History Smoking Status: Current every day smoker Exam <MELITON Flores - Last Filed: 05/25/19 15:42> Narrative Exam Narrative: GENERAL: This is a well-nourished, well-developed patient, appears uncomfortable HEAD: Atraumatic. Normocephalic. No temporal or scalp tenderness. EYES: Pupils equal round and reactive. Extraocular motions intact. No scleral icterus. No injection or drainage. ENT: Nose without bleeding, purulent drainage or septal hematoma. Throat with erythema and tonsillar exudate. No tonsillar hypertrophy noted. Uvula midline. Airway patent. Bilateral TMs pearly mcgovern. NECK: Trachea midline. No JVD or lymphadenopathy. Supple, nontender, no meningeal signs. CARDIOVASCULAR: Regular rate and rhythm without murmurs, gallops, or rubs. RESPIRATORY: Clear to auscultation. Breath sounds equal bilaterally. No wheezes, rales, or rhonchi. No cough. No increased respiratory effort. No accessory muscle use. GASTROINTESTINAL: Abdomen soft, non-tender, nondistended. No hepato- splenomegaly, or palpable masses. No guarding. Active bowel sounds all 4 quadrants EXTREMITIES: No clubbing, cyanosis, or edema. No joint tenderness, effusion, or edema noted. BACK: Nontender without deformity or crepitance. No flank tenderness. NEURO: AOx3. SKIN: No rash or erythema. Initial Vital Signs Initial Vital Signs: Vital Signs Temperature 100.1 F H 05/25/19 14:45 Pulse Rate 129 H 05/25/19 14:45 Respiratory Rate 20 05/25/19 14:45 Blood Pressure 155/108 H 05/25/19 14:45 Pulse Oximetry 100 05/25/19 14:45 <Estelle Velasquez MD - Last Filed: 05/25/19 15:50> Initial Vital Signs Initial Vital Signs: Vital Signs Temperature 100.1 F H 05/25/19 14:45 Pulse Rate 129 H 05/25/19 14:45 Respiratory Rate 20 05/25/19 14:45 Blood Pressure 155/108 H 05/25/19 14:45 Pulse Oximetry 100 05/25/19 14:45 Course <KATIE Flores-BC - Last Filed: 05/25/19 15:42> Orders Ordered: ED Orders 05/25/19 14:51 Influenza A and B by PCR Rapid Stat Discontinued Medications Acetaminophen (Tylenol) 975 mg PO NOW ONE Stop: 05/25/19 14:56 Last Admin: 05/25/19 15:05 Dose: 975 mg Documented by: TIFFANI Ibuprofen (Advil) 800 mg PO NOW ONE Stop: 05/25/19 14:56 Last Admin: 05/25/19 15:05 Dose: 800 mg Documented by: TIFFANI Vital Signs Vital signs: Vital Signs - 8 hr 05/25/19 14:45 05/25/19 15:05 05/25/19 15:34 Temperature 100.1 F H 100.1 F H 99.7 F H Pulse Rate 129 H 122 H Respiratory Rate 20 16 Blood Pressure 155/108 H Blood Pressure [Left Arm] 144/109 H Pulse Oximetry 100 99 <Estelle Velasquez MD - Last Filed: 05/25/19 15:50> Orders Ordered: ED Orders 05/25/19 14:51 Influenza A and B by PCR Rapid Stat Discontinued Medications Acetaminophen (Tylenol) 975 mg PO NOW ONE Stop: 05/25/19 14:56 Last Admin: 05/25/19 15:05 Dose: 975 mg Documented by: TIFFANI Ibuprofen (Advil) 800 mg PO NOW ONE Stop: 05/25/19 14:56 Last Admin: 05/25/19 15:05 Dose: 800 mg Documented by: TIFFANI Vital Signs Vital signs: Vital Signs - 8 hr 05/25/19 14:45 05/25/19 15:05 05/25/19 15:34 Temperature 100.1 F H 100.1 F H 99.7 F H Pulse Rate 129 H 122 H Respiratory Rate 20 16 Blood Pressure 155/108 H Blood Pressure [Left Arm] 144/109 H Pulse Oximetry 100 99 MDM - URI/Sore Throat <UMM FloresP-BC - Last Filed: 05/25/19 15:42> Lab Data Labs: Lab Results 05/25/19 Range/Units 14:51 Influenza A & B (PCR) Negative (Negative) Point of Care Testing Rapid Strep A Positive [facility] Narrative Medical decision making narrative: The patient is a 33-year-old female who presents with chief complaint of sore throat fevers for the past 3 days. She has strep positive in the emergency department, which correlates with the clinical exam. Her flu came back negative. She denies any abdominal pain vomiting or diarrhea. I will initiate treatment for strep with amoxicillin. I discussed at length continued [id number] medications as needed and able for fever and comfort. Encouraged follow-up with primary care provider especially if no improvement. Discussed coming back to the emergency department for any acute concerns such as difficulty breathing chest pain shortness of breath etc. The patient has no questions or concerns upon discharge and states understanding of plan of care as well as return precautions. Of note the patient's heart rate was persistently elevated throughout her stay in the emergency department. She states that she has been persistently tachycardic in the 100s, up to 150s and this has been going on for months. She is not concerned about it like to go home. I am okay with this as she states this is a chronic issue. She also has no chest pain etc. <Estelle Velasquez MD - Last Filed: 05/25/19 15:50> Lab Data Labs: Lab Results 05/25/19 Range/Units 14:51 Influenza A & B (PCR) Negative (Negative) Point of Care Testing Rapid Strep A Positive Discharge Plan Departure Patient Disposition: Home Clinical Impression: Strep throat Discharge Date/Time: 05/25/19 15:39 Instructions: DI for Strep Throat, DI for Fever (Symptom) -- Adult Activity Restrictions/Additional Instructions: Today you tested negative for the flu, but tested positive for strep. I have given you a prescription for antibiotics. Please take the whole course of antibiotics. I suggest continued Tylenol and Motrin as needed and able for fever and pain. Please follow up with primary care provider. Please follow-up with no improvement or worsening. Please come back to emergency department for any acute concerns such as chest pain, shortness of breath, inability keep down fluids etc Prescriptions: New amoxicillin 875 mg tablet 875 mg PO BID Qty: 20 RF: 0
[2019-05-25 15:34] VITALS: BP 144/109; PULSE 122; RESP 16; TEMP 37.6; O2SAT 99
== END 2019-05-25 15:39 | disposition home or self-care (01) ==
PROVIDERS: Emergency Medicine; Emergency Provider Nurse Practitioner Family
DX: J02.9 Acute pharyngitis, unspecified (principal)
CPT/HCPCS: 87400; 87502; 87880; 99282; 99283

== ENCOUNTER 2019-08-03 09:23 | Emergency (ER) | payer OTHER, MEDICAID, SELFPAY ==
--- NOTE | 2019-08-03 09:29 | DI.RAD.S_ITS ---
PROCEDURE: XR ABDOMEN MIN 2V INDICATIONS: severe abdominal pain TECHNIQUE: 2 views of the abdomen were acquired. COMPARISON: [facility], , ABDOMEN ACUTE SERIES, 09/07/2009, 2:58. FINDINGS: Surgical changes and devices: There is an IUD demonstrated centrally in the pelvis. Bowel: No pneumoperitoneum. The bowel gas pattern is normal. Soft tissues: No suspicious abdominal calcifications. Bones: No suspicious bony abnormalities. IMPRESSION: 1. No acute intra-abdominal radiographic abnormality. Dictated by: Chele Pederson M.D. on 08/03/2019 at 9:10 Approved by: Chele Pederson M.D. on 08/03/2019 at 9:11
[2019-08-03 09:30] VITALS: BP 153/114; PULSE 100; RESP 20; TEMP 37.1; O2SAT 100; BMI 29.2
--- NOTE | 2019-08-03 09:49 | ED_ITS ---
HPI - Abdominal Pain General Chief Complaint: Abdominal Pain Stated Complaint: abdominable pain 3xweeks prev bladder inf Time Seen by Provider: 08/03/19 09:24 Source: patient and family Mode of arrival: Ambulatory Limitations: no limitations History of Present Illness HPI narrative: 33-year-old female daily smoker with history of smoking methamphetamines presents with a family friend in the chief complaint of severe episodic epigastric pain over the past few days. She admits to nausea but denies any vomiting. She denies any provocation or palliation. She has had no fever or chills. She denies any dysuria, frequency or urgency. She denies any constipation or diarrhea. She had an episode of similar pain a few weeks ago when she was evaluated at an outside facility, had normal labs, ultrasound and was told she had a UTI. She denies any provocation, palliation or radiation of her pain. MD complaint: abdominal pain Onset (ago): day(s) Pain Consistency: intermittent Location: epigastric Severity: moderate Quality: cramping Radiation: none Migration to: no migration Relieving factors: nothing Exacerbating factors: nothing Associated symptoms: nausea Related Data Previous Rx's Medication Instructions Recorded amoxicillin 875 mg PO BID #20 tab 05/25/19 amlodipine 5 mg PO DAILY #30 tab 08/03/19 Allergies Allergy/AdvReac Type Severity Reaction Status Date / Time No Known Drug Allergies Allergy Verified 08/03/19 09:30 Review of Systems Constitutional Constitutional: Denies chills, Denies fatigue, Denies fever(s), Denies frequent falls, Denies lethargy and Denies weakness Eyes Eyes: Denies change in vision, Denies eye discharge, Denies irritation and Denies loss of vision ENT Ears, Nose, Mouth, and Throat: Denies change in voice, Denies dizziness, Denies neck pain, Denies sore throat and Denies throat swelling Cardiovascular Cardiovascular: Denies chest pain, Denies irregular heart rhythm, Denies lightheadedness, Denies palpitations, Denies dyspnea, Denies dyspnea on exertion and Denies orthopnea Respiratory Respiratory: Denies cough, Denies dyspnea, Denies dyspnea on exertion and Denies wheezing Gastrointestinal Gastrointestinal: Reports abdominal pain, Denies change in bowel habits, Denies diarrhea, Reports nausea and Denies vomiting Genitourinary Genitourinary: Denies hematuria, Denies flank pain, Denies urinary incontinence and Denies urinary urgency Musculoskeletal Musculoskeletal: Denies back pain, Denies muscle weakness, Denies neck pain, Denies numbness and Denies tingling Integumentary/Breasts Skin/Breast: Denies pruritus, Denies erythema, Denies rash and Denies wounds Neurologic Neurologic: Denies behavioral changes, Denies confusion, Denies dizziness, Denies frequent falls, Denies loss of vision, Denies numbness, Denies tingling and Denies weakness Psychiatric Psychiatric: Denies anxiety, Denies behavioral changes, Denies confusion, Denies depression, Denies homicidal ideation and Denies suicidal ideation Endocrine Endocrine: Denies fatigue, Denies flushing and Denies palpitations Hematologic/Lymphatic Hematologic/Lymphatic: Denies easy bruising Allergic/Immunologic Allergic/Immunologic: Denies urticaria, Denies throat swelling and Denies wheezing Patient History Social History Smoking Status: Current every day smoker Smoking Status: Current every day smoker alcohol intake frequency: 0-2 drinks per day Substance Use Type: methamphetamine Exam Narrative Exam Narrative: GENERAL: [33] year old patient appears stated age. Well- nourished, well-developed patient, in mild distress. Obviously uncomfortable, rubbing her epigastric HEAD: Atraumatic. Normocephalic. EYES: Pupils equal round and reactive. Extraocular motions intact. No scleral icterus. No injection or drainage. ENT: Nose without bleeding, purulent drainage. Throat without erythema, tonsillar hypertrophy or exudate. Airway patent. NECK: Trachea midline. Non tender CARDIOVASCULAR: Regular rate and rhythm without murmurs, gallops, or rubs. RESPIRATORY: Clear to auscultation. Breath sounds equal bilaterally. No wheezes, rales, or rhonchi. GASTROINTESTINAL: Abdomen soft, epigastric tenderness, nondistended. EXTREMITIES: No edema or joint tenderness. BACK: Nontender without deformity or crepitance. No flank tenderness. NEURO: AOx3. SKIN: No rash or erythema of visible areas Initial Vital Signs Initial Vital Signs: Vital Signs Temperature 98.7 F 08/03/19 09:30 Pulse Rate 100 H 08/03/19 09:30 Respiratory Rate 20 08/03/19 09:30 Blood Pressure 153/114 H 08/03/19 09:30 Pulse Oximetry 100 08/03/19 09:30 Course Course Course Narrative: BP has improved to 140/100. Remains asymptomatic. Orders Ordered: ED Orders 08/03/19 09:29 XR abdomen min 2V Stat 08/03/19 09:43 Complete Blood Count AUTO DIFF Stat Comprehensive Metabolic Panel Stat Lipase Stat 08/03/19 10:05 US abdomen limited Stat Sodium Chloride (Normal Saline 0.9%) 1,000 mls @ 150 mls/hr IV CONT MIESHA Last Admin: 08/03/19 09:50 Dose: 150 mls/hr Documented by: CAMDEN Discontinued Medications Hydralazine HCl (Apresoline) 10 mg IV NOW ONE Stop: 08/03/19 13:09 Last Admin: 08/03/19 13:30 Dose: 10 mg Documented by: CPRUITT Vital Signs Vital signs: Vital Signs - 8 hr 08/03/19 09:30 08/03/19 13:30 Temperature 98.7 F Pulse Rate 100 H Respiratory Rate 20 Blood Pressure 153/114 H 154/117 H Pulse Oximetry 100 MDM - Abdominal Pain Lab Data Result diagrams: 08/03/19 09:43 08/03/19 09:43 Labs: Lab Results 08/03/19 08/03/19 Range/Units 09:43 09:43 WBC 9.7 (4.5-11.0) X10^3/uL RBC 4.47 (4.0-5.2) X10^6/uL Hgb 13.6 (12.0-16.0) g/dL Hct 39.7 (36-46) % MCV 88.7 (80-100) fL MCH 30.3 (26-34) PG MCHC 34.1 (30-36) % RDW 14.2 (11.6-14.8) % Plt Count 380 (150-400) X10^3/uL Neut % (Auto) 61.1 (50-75) % Lymph % (Auto) 28.8 (25-40) % Johnston % (Auto) 7.3 (3-14) % Eos % (Auto) 1.6 L (2-4) % Baso % (Auto) 1.2 (0-2) % Neut # (Auto) 5900 (0263-4599) /uL Lymph # (Auto) 2800 (4967-7210) /uL Johnston # (Auto) 700 (0-900) /uL Eos # (Auto) 200 (0-450) /uL Baso # (Auto) 100 (0-100) /uL Sodium 140 (137-145) mmol/L Potassium 4.0 (3.4-5.1) mmol/L Chloride 102 (98-107) mmol/L Carbon Dioxide 29 (22-32) mmol/L BUN 10 (7-17) mg/dL Creatinine 0.80 (0.52-1.04) mg/dL Estimated GFR > 60.0 (>60) mL/min BUN/Creatinine Ratio 12.5 (6-22) Glucose 91 (70-100) mg/dL Calcium 9.2 (8.4-10.2) mg/dL Total Bilirubin 0.5 (0.2-1.3) mg/dL AST 22 (14-36) IU/L ALT 18 (<35) IU/L Alkaline Phosphatase 68 (38-126) U/L Total Protein 8.4 H (6.3-8.2) g/dL Albumin 4.5 (3.5-5.0) g/dL Globulin 3.9 (1.7-4.1) g/dL Albumin/Globulin Ratio 1.2 (1.0-2.8) Lipase 76 (23-300) U/L Point of care testing: Urine Dip Bedside Urine Glucose Negative Bedside Urine Bilirubin - Negative Bedside Urine Ketone +/- 5 Urine Specific [place] 1.020 Bedside Urine Occult Blood - Negative Bedside Urine pH 6.0 Bedside Urine Protein +/- 15 Bedside Urine Urobilinogen +/- 1mg Bedside Urine Nitrite - Negative Bedside Urine Leukocytes - Negative Esterase Imaging Data Abdominal x-ray: Radiologist's impression: [address] [address] XRay Report Signed Patient: Lamar SimmonsR#: [id number] : 1985Acct:[id number] Age/Sex: 33 / FDate of Service: 08/03/19 Loc: ED Accession Number: [id number] Procedure: XR abdomen min 2V Ordering Provider: Alessio Ware D.O. PROCEDURE: XR ABDOMEN MIN 2V INDICATIONS: severe abdominal pain TECHNIQUE: 2 views of the abdomen were acquired. COMPARISON: [facility], CR, ABDOMEN ACUTE SERIES, 09/07/2009, 2:58. FINDINGS: Surgical changes and devices: There is an IUD demonstrated centrally in the p kiko. Bowel: No pneumoperitoneum. The bowel gas pattern is normal. Soft tissues: No suspicious abdominal calcifications. Bones: No suspicious bony abnormalities. IMPRESSION: 1. No acute intra-abdominal radiographic abnormality. Dictated by: Chele Pederson M.D. on 08/03/2019 at 9:10 Approved by: Chele Pederson M.D. on 08/03/2019 at 9:11 [facility] Narrative Medical decision making narrative: Multiple etiologies for patient's symptoms considered including: [Pancreatitis, hepatitis, gallbladder disease all considered but thought less likely given lack of findings on labs or imaging as well as episodic nature. Considered bowel obstruction or constipation, obstruction thought less likely given episodic nature of complaint and lack of findings on x-ray. X-ray shows a nonspecific bowel gas pattern but a large amount of stool raising the suspicion of constipation and gas pain. Furthermore, patient has had elevated blood pressure but over the course of visit her pain completely resolved while her blood pressure remained high making a correlation difficult to make] Patient's symptoms improved or duration of stay with above-stated therapies. Findings and discharge diagnosis discussed with patient/family followed by verbalization of understanding Return precautions discussed with patient/family whom verbalize understanding. Discharge Plan Departure Patient Disposition: Home Clinical Impression: Abdominal pain Qualifiers: Abdominal location: epigastric Qualified Code(s): R10.13 - Epigastric pain Hypertension Qualifiers: Hypertension type: essential hypertension Qualified Code(s): I10 - Essential (primary) hypertension Activity Restrictions/Additional Instructions: *You have been diagnosed with [epigastric pain, resolved. Hypertension] *What to do: *Take medications as directed *Follow up with your primary care provider in 2-3 days, call for an appointment. Let them know you were seen in the Emergency Department and that we ask that you be seen in follow up *Return to ER if you should have any new, worsening or concerning symptoms 1. Stay active 2. Return to your normal diet as much as possible 3. Stay well hydrated 4. A combination of over the counter laxitives including Dulcolax (stimulant laxative) Magnesium Citrate (pulls water into stool) Colace (stool softener) Prescriptions: New amlodipine 5 mg tablet 5 mg PO DAILY Qty: 30 RF: 0 No Action amoxicillin 875 mg tablet 875 mg PO BID Qty: 20 RF: 0 Referrals: [facility] [Outside] [facility] [Outside]
[2019-08-03] MEDS: SODIUM CHLORIDE 0.9% 1,000 ML 150 ML IV (09:50)
[2019-08-03 10:01] LABS: Alanine Aminotransferase 18 IU/L (<35); Albumin 4.5 g/dL (3.5-5.0); Albumin Globulin Ratio 1.2 (1.0-2.8); Alkaline Phosphatase 68 U/L (38-126); Aspartate Aminotransferase 22 IU/L (14-36); BUN Creatinine Ratio 12.5 (6-22); Bilirubin Total 0.5 mg/dL (0.2-1.3); Blood Urea Nitrogen 10 mg/dL (7-17); Calcium 9.2 mg/dL (8.4-10.2); Carbon Dioxide 29 mmol/L (22-32); Chloride 102 mmol/L (98-107); Estimated Glomerular Filt Rate > 60.0 mL/min (>60); Globulin 3.9 g/dL (1.7-4.1); Glucose 91 mg/dL (70-100); HEMOLYSIS < 15 (0-50); Lipase 76 U/L (23-300); Sodium 140 mmol/L (137-145); Total Protein 8.4 g/dL (6.3-8.2)
--- NOTE | 2019-08-03 10:05 | DI.US.S_ITS ---
PROCEDURE: US ABDOMEN LIMITED INDICATIONS: SEVERE EPIGASTRIC PAIN TECHNIQUE: Real-time scanning was performed of the abdominal and retroperitoneal organs, with image documentation. COMPARISON: None. FINDINGS: Liver: Liver is normal in size and homogeneous in echotexture. Gallbladder: There is no gallstone. No gallbladder wall thickening or pericholecystic fluid. No biliary ductal dilatation. Biliary ducts: Intrahepatic bile ducts are non-dilated. Extrahepatic bile duct caliber measures 4 mm. Normal is 6-7 mm or less in diameter, or 10 mm or less post-cholecystectomy. Pancreas: Visualized portions of the pancreas are sonographically normal. IMPRESSION: Unremarkable ultrasound examination of right upper quadrant abdomen. Dictated by: Steven Monte M.D. on 08/03/2019 at 11:27 Approved by: Steven Monte M.D. on 08/03/2019 at 11:28
[2019-08-03 10:12] LABS: Add Manual Diff / Slide Review NO; Basophils Absolute Auto 100 /uL (0-100); Basophils Percent Auto 1.2 % (0-2); Eosinophils Absolute Auto 200 /uL (0-450); Eosinophils Percent Auto 1.6 % (2-4); Hematocrit 39.7 % (36-46); Hemoglobin 13.6 g/dL (12.0-16.0); Lymphocytes Absolute Auto 2800 /uL (1100-4500); Lymphocytes Percent Auto 28.8 % (25-40); Mean Corpuscular HGB Conc 34.1 % (30-36); Mean Corpuscular Hemoglobin 30.3 PG (26-34); Mean Corpuscular Volume 88.7 fL (80-100); Monocytes Absolute Auto 700 /uL (0-900); Monocytes Percent Auto 7.3 % (3-14); Neutrophils Absolute Auto 5900 /uL (1500-7000); Neutrophils Percent Auto 61.1 % (50-75); Platelet Count 380 X10^3/uL (150-400); Red Blood Cell Count 4.47 X10^6/uL (4.0-5.2); Red Cell Distribution Width 14.2 % (11.6-14.8); White Blood Cell Count 9.7 X10^3/uL (4.5-11.0)
[2019-08-03 13:30] VITALS: BP 154/117
[2019-08-03] MEDS: HYDRALAZINE 20 MG/ML VIAL 10 MG IV (13:30)
[2019-08-03 14:51] VITALS: BP 143/101; PULSE 100; RESP 14; O2SAT 99
== END 2019-08-03 14:52 | disposition home or self-care (01) ==
PROVIDERS: Emergency Provider Emergency Medicine
DX: R10.13 Epigastric pain (principal); I10 Essential (primary) hypertension
CPT/HCPCS: 36415; 74019; 76705; 80053; 81003; 83690; 85025; 96374; 99284; J0360

== ENCOUNTER 2019-08-06 07:06 | Emergency (ER) | payer OTHER, MEDICAID, SELFPAY ==
[2019-08-06 07:12] VITALS: BP 150/109; PULSE 107; RESP 15; TEMP 37.2; O2SAT 99; BMI 28.8
[2019-08-06 07:45] VITALS: BP 137/101; PULSE 90; RESP 18; O2SAT 99
[2019-08-06 08:00] VITALS: BP 144/107; PULSE 85; RESP 18; O2SAT 100
--- NOTE | 2019-08-06 08:09 | ED.ABDPAIN ---
HPI - Abdominal Pain General Chief Complaint: Abdominal Pain Stated Complaint: severe stomach pain Time Seen by Provider: 08/06/19 07:59 Source: family Mode of arrival: Family Vehicle Limitations: no limitations History of Present Illness HPI narrative: Patient comes emergency department complaining of severe upper abdominal pain that started a few days ago. Patient states that she is not known to have ulcers, and as far she knows, does not have any gallbladder issues. She states she has had hematuria previously but is not known to have any kidney stones. She denies dysuria or gross hematuria today. No fevers. No nausea or vomiting. She states that she does not have any chest pain, shortness breath, or cough. She states that she was diagnosed with hypertension, and was given a prescription for amlodipine, but has not filled it yet. According to records, the patient was seen here on the for similar symptoms and was worked up with labs and ultrasound, which were unremarkable. No vaginal complaints. Patient has a Mirena IUD which she states was supposed to be taken out in 2014. No other complaints at this time. She states that eating and movement seem to make the pain worse. Related Data Previous Rx's Medication Instructions Recorded amlodipine 5 mg PO DAILY #30 tab 08/03/19 Allergies Allergy/AdvReac Type Severity Reaction Status Date / Time No Known Drug Allergies Allergy Verified 08/03/19 09:30 Review of Systems Constitutional Constitutional: Denies chills, Denies fatigue, Denies fever(s), Denies frequent falls, Denies lethargy and Denies weakness Eyes Eyes: Denies change in vision, Denies eye discharge, Denies irritation and Denies loss of vision ENT Ears, Nose, Mouth, and Throat: Denies change in voice, Denies dizziness, Denies neck pain, Denies sore throat and Denies throat swelling Cardiovascular Cardiovascular: Denies chest pain, Denies irregular heart rhythm, Denies lightheadedness, Denies palpitations, Denies dyspnea, Denies dyspnea on exertion and Denies orthopnea Respiratory Respiratory: Denies cough, Denies dyspnea, Denies dyspnea on exertion and Denies wheezing Gastrointestinal Gastrointestinal: Reports abdominal pain, Denies change in bowel habits, Denies diarrhea, Denies nausea and Denies vomiting Genitourinary Genitourinary: Denies hematuria, Denies flank pain, Denies urinary incontinence and Denies urinary urgency Musculoskeletal Musculoskeletal: Denies back pain, Denies muscle weakness, Denies neck pain, Denies numbness and Denies tingling Integumentary/Breasts Skin/Breast: Denies pruritus, Denies erythema, Denies rash and Denies wounds Neurologic Neurologic: Denies behavioral changes, Denies confusion, Denies dizziness, Denies frequent falls, Denies loss of vision, Denies numbness, Denies tingling and Denies weakness Psychiatric Psychiatric: Denies anxiety, Denies behavioral changes, Denies confusion, Denies depression, Denies homicidal ideation and Denies suicidal ideation Endocrine Endocrine: Denies fatigue, Denies flushing and Denies palpitations Hematologic/Lymphatic Hematologic/Lymphatic: Denies easy bruising Allergic/Immunologic Allergic/Immunologic: Denies urticaria, Denies throat swelling and Denies wheezing Patient History Medical History Healthy female adult (Chronic) Surgical History History of D&C (Resolved) Social History Smoking Status: Current every day smoker Smoking Status: Current every day smoker alcohol intake frequency: 0-2 drinks per day Substance Use Type: methamphetamine Exam Initial Vital Signs Initial Vital Signs: Vital Signs Temperature 99 F 08/06/19 07:12 Pulse Rate 107 H 08/06/19 07:12 Respiratory Rate 15 08/06/19 07:12 Blood Pressure 150/109 H 08/06/19 07:12 Pulse Oximetry 99 08/06/19 07:12 Const General: cooperative and well developed Nutritional Appearance: well nourished Orientation: alert, awake, oriented x3 and not confused [facility] Head: normocephalic and atraumatic Ears: external ears normal Nose: external nose normal and No nasal discharge Face and sinus: face symmetric and No dry mucous membranes Mouth: oral mucosae normal and moist mucous membranes Teeth and gingiva: dentition normal Eyes General: appearance normal, both eyes and all related structures Eyelids: eyelids normal Conjunctivae: conjunctivae normal Sclera: sclerae normal Pupils: PERRL EOM: EOM intact bilaterally Neck Neck: normal visual inspection, trachea midline, No lymphadenopathy, No midline deformity and No JVD Lymphatic: No lymphedema Chest Chest: normal inspection of the chest Resp Effort & Inspection: normal respiratory effort, able to speak in complete sentences, no respiratory distress and no use of accessory muscles Auscultation: clear to auscultation bilaterally, no rales, no rhonchi and no wheezes Cardio Rate: regular rate Rhythm: regular rhythm Heart Sounds: no click, no gallops, no murmurs and no rubs Pulses: normal peripheral pulses GI Inspection: non-distended Palpation: soft, no hepatosplenomegaly, No guarding, No pulsatile mass and tender (Moderate bilateral lower quadrant and left upper quadrant.) Auscultation: normal bowel sounds Back/Spine/Pelvis Back: No CVA tenderness Cervical Spine: cervical ROM normal and No pain with cervical ROM Thoracic/Lumbar Spine: thoracic and lumbar spine normal to inspection Skin General: no rashes or lesions noted, No jaundice and No petechiae Neuro General: alert, oriented x3, gait normal and no focal motor deficits Speech: speech normal Extrem General: full ROM, no clubbing, cyanosis or edema, no pedal edema and no calf tenderness Psych Appearance: well kempt Mental Status: mental status grossly normal Attitude: cooperative Thought Content: normal and suicidality Judgment: judgment good Course Course Course Narrative: Patient was given a L of 0.9 normal saline and labs were rechecked and unremarkable. CT scan of the abdomen and pelvis showed potential inflammation around the adnexa and pelvic ultrasound was recommended. This is done and did not show any evidence of torsion or PID. The patient was found to have ovarian cysts. I discussed with her that there is a thick no evidence of an emergent condition, and that she needs to follow up with her primary care physician to discuss having endoscopy done. Patient was feeling better in the emergency department after observation was pain free. We've discussed home management of symptoms, as well as the usual indications for return. Orders Ordered: Discontinued Medications Al Hydrox/Mg Hydrox/Simethicone 20 ml/ Lidocaine HCl 15 ml 0 ml PO NOW ONE Stop: 08/06/19 11:32 Last Admin: 08/06/19 12:40 Dose: Not Given Documented by: MEISENB Sodium Chloride (Normal Saline 0.9%) 1,000 mls @ 1,000 mls/hr IV BOLUS ONE Stop: 08/06/19 09:08 Last Infusion: 08/06/19 11:17 Dose: 0 mls/hr Documented by: Admin: 08/06/19 08:26 Dose: 1,000 mls/hr Documented by: REBA Vital Signs Vital signs: Vital Signs - 8 hr 08/06/19 07:12 08/06/19 07:45 08/06/19 08:00 Temperature 99 F Pulse Rate 107 H 90 85 Respiratory Rate 15 18 18 Blood Pressure 150/109 H Blood Pressure [Right Arm] 137/101 H 144/107 H Pulse Oximetry 99 99 100 MDM - Abdominal Pain Medical Records Attestation: I reviewed the patient's medical records. Lab Data Attestation: I reviewed the patient's lab results. Result diagrams: 08/06/19 08:17 08/06/19 08:17 Labs: Lab Results 08/06/19 08/06/19 08/06/19 Range/Units 08:17 08:17 08:17 WBC 10.6 (4.5-11.0) X10^3/uL RBC 4.55 (4.0-5.2) X10^6/uL Hgb 13.6 (12.0-16.0) g/dL Hct 40.8 (36-46) % MCV 89.7 (80-100) fL MCH 29.9 (26-34) PG MCHC 33.4 (30-36) % RDW 13.8 (11.6-14.8) % Plt Count 334 (150-400) X10^3/uL Neut % (Auto) 66.3 (50-75) % Lymph % (Auto) 19.5 L (25-40) % [place] % (Auto) 9.8 (3-14) % Eos % (Auto) 3.5 (2-4) % Baso % (Auto) 0.9 (0-2) % Neut # (Auto) 7000 (8077-9422) /uL Lymph # (Auto) 2100 (0494-3139) /uL [place] # (Auto) 1000 H (0-900) /uL Eos # (Auto) 400 (0-450) /uL Baso # (Auto) 100 (0-100) /uL PT 10.4 (10.1-12.7) SECONDS INR 0.9 (0.9-1.3) APTT 32 (26.4-36.2) SECONDS Sodium 141 (137-145) mmol/L Potassium 5.3 H D (3.4-5.1) mmol/L Chloride 102 (98-107) mmol/L Carbon Dioxide 33 H (22-32) mmol/L BUN 9 (7-17) mg/dL Creatinine 0.80 (0.52-1.04) mg/dL Estimated GFR > 60.0 (>60) mL/min BUN/Creatinine Ratio 11.3 (6-22) Glucose 67 L (70-100) mg/dL Calcium 9.5 (8.4-10.2) mg/dL Total Bilirubin 0.3 (0.2-1.3) mg/dL AST 21 (14-36) IU/L ALT 17 (<35) IU/L Alkaline Phosphatase 61 (38-126) U/L Total Protein 8.0 (6.3-8.2) g/dL Albumin 4.3 (3.5-5.0) g/dL Globulin 3.7 (1.7-4.1) g/dL Albumin/Globulin Ratio 1.2 (1.0-2.8) Lipase 121 D (23-300) U/L Urine RBC (0-5/HPF) Urine WBC (0-5/HPF) Ur Squamous Epith Cells (0-5/HPF) Amorphous Sediment Urine Bacteria (None) Ur Culture Indicated? 08/06/19 Range/Units 09:00 WBC (4.5-11.0) X10^3/uL RBC (4.0-5.2) X10^6/uL Hgb (12.0-16.0) g/dL Hct (36-46) % MCV (80-100) fL MCH (26-34) PG MCHC (30-36) % RDW (11.6-14.8) % Plt Count (150-400) X10^3/uL Neut % (Auto) (50-75) % Lymph % (Auto) (25-40) % [place] % (Auto) (3-14) % Eos % (Auto) (2-4) % Baso % (Auto) (0-2) % Neut # (Auto) (3062-9049) /uL Lymph # (Auto) (1768-5382) /uL [place] # (Auto) (0-900) /uL Eos # (Auto) (0-450) /uL Baso # (Auto) (0-100) /uL PT (10.1-12.7) SECONDS INR (0.9-1.3) APTT (26.4-36.2) SECONDS Sodium (137-145) mmol/L Potassium (3.4-5.1) mmol/L Chloride (98-107) mmol/L Carbon Dioxide (22-32) mmol/L BUN (7-17) mg/dL Creatinine (0.52-1.04) mg/dL Estimated GFR (>60) mL/min BUN/Creatinine Ratio (6-22) Glucose (70-100) mg/dL Calcium (8.4-10.2) mg/dL Total Bilirubin (0.2-1.3) mg/dL AST (14-36) IU/L ALT (<35) IU/L Alkaline Phosphatase (38-126) U/L Total Protein (6.3-8.2) g/dL Albumin (3.5-5.0) g/dL Globulin (1.7-4.1) g/dL Albumin/Globulin Ratio (1.0-2.8) Lipase (23-300) U/L Urine RBC None seen (0-5/HPF) Urine WBC 0-1/hpf (0-5/HPF) Ur Squamous Epith Cells 10-30 /hpf H (0-5/HPF) Amorphous Sediment 2+ Urine Bacteria Few (2-10) H (None) Ur Culture Indicated? Cult not indicated Point of care testing: Point of Care Testing Test Results Negative Urine Dip Bedside Urine Glucose Negative Bedside Urine Bilirubin - Negative Bedside Urine Ketone - Negative Urine Specific [place] 1.015 Bedside Urine Occult Blood - Negative Bedside Urine pH 6.0 Bedside Urine Protein - Negative Bedside Urine Urobilinogen - Negative Bedside Urine Nitrite - Negative Bedside Urine Leukocytes +/- [address] scan - abdomen: Radiologist's impression: PROCEDURE: CT ABDOMEN PELVIS W CON INDICATIONS: abdominal pain TECHNIQUE: After the administration of intravenous contrast, 5 mm thick sections acquired from the diaphragm to the symphysis. 5 mm coronal and sagittal reformats were acquired. For radiation dose reduction, the following was used: automated exposure control, adjustment of mA and/or kV according to patient size. COMPARISON: None. FINDINGS: Image quality: Excellent. ABDOMEN: Lung bases: Lung bases are clear. Heart size is normal. Solid organs: Liver is normal in size and enhancement. Gallbladder is decompressed. Biliary system is non dilated. Pancreas enhances normally. Spleen is normal in size and enhancement. No adrenal nodules. Kidneys demonstrate normal size and enhancement, without hydronephrosis. Small cortical medullary cyst in each kidney. Peritoneum and bowel: Bowel loops demonstrate normal wall thickness and caliber. The structure believed to be a noninflamed appendix is present along the caudal aspect of the cecum. No free fluid or air. Nodes and vessels: No retroperitoneal or mesenteric adenopathy by size criteria. Aorta and inferior vena cava are normal in size. Miscellaneous: No ventral hernias. PELVIS: Genitourinary: Bladder wall thickness is uniformly increased. The uterus is anteverted and contains an IUD. There is mild myometrial heterogeneity of enhancement, nonspecific. Left ovarian ovoid fat containing mass measuring 3.2 cm. There are 2 ovoid low density masses in the right posterior upper adnexa, one measuring about 3.8 cm and the other measuring about 3.5 cm. There is a small amount of posteriorly layering free pelvic fluid. Trace amount of fluid is also present in the anterior right pelvis and there are minor generalized inflammatory changes indicated by hazy fat in the right pelvis. Miscellaneous: No inguinal hernias or adenopathy. Bones: No suspicious bony lesions. No vertebral body compression fractures. IMPRESSION: 1. Generalized right pelvic inflammatory changes surrounding 2 dominant cystic masses in the right upper posterior adnexa, likely associated with the right ovary. This may indicate hemorrhagic cyst, ruptured ovarian cyst, endometriosis, or potentially ovarian torsion. A pelvic ultrasound with Doppler is recommended for further evaluation of the right adnexa. 2. 3.2 cm left ovarian dermoid. 3. Intrauterine device in place. 4. Mild urinary bladder wall thickening, likely reactive. Dictated by: Kymberly Dixon M.D. on 08/06/2019 at 9:36 Approved by: Kymberly Dixon M.D. on 08/06/2019 at 9:46 US pelvis: Radiologist's impression: PROCEDURE: US PELVIC COMPLETE INDICATIONS: INFLAMMATORY CHANGES ON CT, US RECOMMENDED TECHNIQUE: Real-time scanning was performed of the pelvic organs, with image documentation. Additional endovaginal scanning was necessary due to incomplete visualization of the adnexal and endometrial structures by transabdominal scanning. COMPARISON: [facility], US, PELVIC COMPLETE, 09/07/2009, 3:29. FINDINGS: Transabdominal scanning: Limited scanning through the kidneys shows no hydronephrosis. No pathologic free abdominal or pelvic fluid. Anteverted, slightly retroflexed uterus secondary to a distended urinary bladder. Uterine morphology is normal and an IUD is in appropriate position. Complex mass is seen posterior to the lower uterine segment. Hyperechoic left adnexal mass is present. Endovaginal scanning: Uterus: Uterus is normal in size at 11.0 x 4.4 x 5.8 cm. there are 2 myometrial masses, one in the posterior mid body measuring 1.6 cm and one in the right anterior mid body measuring 1.6 cm. The endometrium measures 4 mm in combined thickness. IUD position is appropriate. Ovaries: The right ovary measures 6.1 x 3.2 x 3.0 cm. There are 2 discrete complex cystic structures with numerous fine internal septations, and no internal vascular flow. The larger measures 4.6 x 2.3 x 3.4 cm and the smaller measures 4.2 x 3.0 x 2.5 cm. There is normal arterial and venous flow is seen in the normal ovarian tissue. The left ovary measures 4.6 x 2.4 x 2.8 cm and contains a hyperechoic mass measuring 3.5 x 2.9 x 2.5 cm. A few other subcentimeter ovarian follicles are seen. There is normal vascular flow in the left ovary. Small to moderate amount of simple fluid in the pelvis. IMPRESSION: 1. No evidence of ovarian torsion. 2. 2 complex, avascular cystic structures within the right ovary measuring 4.6 and 4.2 cm. These are most likely hemorrhagic cysts, although differential diagnosis includes endometriomas, less likely ovarian abscesses. Followup ultrasound in 6-8 weeks is recommended to assess for change or resolution. 3. 3.5 cm left ovarian dermoid. 4. IUD in satisfactory position. 5. 2 small uterine fibroids. Dictated by: Kymberly Dixon M.D. on 08/06/2019 at 11:49 Approved by: Kymberly Dixon M.D. on 08/06/2019 at 11:58 Discharge Plan Departure Patient Disposition: Home Clinical Impression: Ovarian cyst Qualifiers: Laterality: bilateral Qualified Code(s): N83.201 - Unspecified ovarian cyst, right side Abdominal pain Qualifiers: Abdominal location: left upper quadrant Qualified Code(s): R10.12 - Left upper quadrant pain Fibroid, uterine Qualifiers: Uterine leiomyoma location: unspecified location Qualified Code(s): D25.9 - Leiomyoma of uterus, unspecified Discharge Date/Time: 08/06/19 12:52 Instructions: DI for Uterine Fibroids, DI for Ovarian Cyst, DI for Abdominal Pain-Adult Activity Restrictions/Additional Instructions: Overall, your labs and CT scan looked good. There was possibly some inflammation around your ovaries, which prompted the ultrasound to be done. The ultrasound only showed chronic ovarian cysts and some muscle growths in your uterus, which is called uterine fibroid. For the most part, these conditions do not cause symptoms although ovarian cysts may occasionally cause pain. There is no evidence of any worrisome condition at this time. You will need to follow up with your primary care physician to discuss having an endoscopy done to look in your stomach and see if you have any ulcers which could be causing the upper abdominal pain, as well. Please call and make an appointment for this as soon as possible. Prescriptions: No Action amlodipine 5 mg tablet 5 mg PO DAILY Qty: 30 RF: 0 Referrals: [facility] [Provider Group]
[2019-08-06] MEDS: SODIUM CHLORIDE 0.9% 1,000 ML 1000 ML IV (08:26)
[2019-08-06 08:32] LABS: Add Manual Diff / Slide Review NO; Basophils Absolute Auto 100 /uL (0-100); Basophils Percent Auto 0.9 % (0-2); Eosinophils Absolute Auto 400 /uL (0-450); Eosinophils Percent Auto 3.5 % (2-4); Hematocrit 40.8 % (36-46); Hemoglobin 13.6 g/dL (12.0-16.0); Lymphocytes Absolute Auto 2100 /uL (1100-4500); Lymphocytes Percent Auto 19.5 % (25-40); Mean Corpuscular HGB Conc 33.4 % (30-36); Mean Corpuscular Hemoglobin 29.9 PG (26-34); Mean Corpuscular Volume 89.7 fL (80-100); Monocytes Absolute Auto 1000 /uL (0-900); Monocytes Percent Auto 9.8 % (3-14); Neutrophils Absolute Auto 7000 /uL (1500-7000); Neutrophils Percent Auto 66.3 % (50-75); Platelet Count 334 X10^3/uL (150-400); Red Blood Cell Count 4.55 X10^6/uL (4.0-5.2); Red Cell Distribution Width 13.8 % (11.6-14.8); White Blood Cell Count 10.6 X10^3/uL (4.5-11.0)
[2019-08-06 08:40] LABS: INR 0.9 (0.9-1.3); Prothrombin Time 10.4 SECONDS (10.1-12.7)
[2019-08-06 08:42] LABS: PTT Partial Thromboplastin Tim 32 SECONDS (26.4-36.2)
[2019-08-06 08:54] LABS: Alanine Aminotransferase 17 IU/L (<35); Albumin 4.3 g/dL (3.5-5.0); Albumin Globulin Ratio 1.2 (1.0-2.8); Alkaline Phosphatase 61 U/L (38-126); Aspartate Aminotransferase 21 IU/L (14-36); BUN Creatinine Ratio 11.3 (6-22); Bilirubin Total 0.3 mg/dL (0.2-1.3); Blood Urea Nitrogen 9 mg/dL (7-17); Calcium 9.5 mg/dL (8.4-10.2); Carbon Dioxide 33 mmol/L (22-32); Chloride 102 mmol/L (98-107); Estimated Glomerular Filt Rate > 60.0 mL/min (>60); Globulin 3.7 g/dL (1.7-4.1); Glucose 67 mg/dL (70-100); HEMOLYSIS < 15 (0-50); Lipase 121 U/L (23-300); Potassium 5.3 mmol/L (3.4-5.1); Sodium 141 mmol/L (137-145)
[2019-08-06 09:20] LABS: RBC Urine None Seen (0-5/HPF)
--- NOTE | 2019-08-06 09:22 | DI.CT.S_ITS ---
PROCEDURE: CT ABDOMEN PELVIS W CON INDICATIONS: abdominal pain TECHNIQUE: After the administration of intravenous contrast, 5 mm thick sections acquired from the diaphragm to the symphysis. 5 mm coronal and sagittal reformats were acquired. For radiation dose reduction, the following was used: automated exposure control, adjustment of mA and/or kV according to patient size. COMPARISON: None. FINDINGS: Image quality: Excellent. ABDOMEN: Lung bases: Lung bases are clear. Heart size is normal. Solid organs: Liver is normal in size and enhancement. Gallbladder is decompressed. Biliary system is non dilated. Pancreas enhances normally. Spleen is normal in size and enhancement. No adrenal nodules. Kidneys demonstrate normal size and enhancement, without hydronephrosis. Small cortical medullary cyst in each kidney. Peritoneum and bowel: Bowel loops demonstrate normal wall thickness and caliber. The structure believed to be a noninflamed appendix is present along the caudal aspect of the cecum. No free fluid or air. Nodes and vessels: No retroperitoneal or mesenteric adenopathy by size criteria. Aorta and inferior vena cava are normal in size. Miscellaneous: No ventral hernias. PELVIS: Genitourinary: Bladder wall thickness is uniformly increased. The uterus is anteverted and contains an IUD. There is mild myometrial heterogeneity of enhancement, nonspecific. Left ovarian ovoid fat containing mass measuring 3.2 cm. There are 2 ovoid low density masses in the right posterior upper adnexa, one measuring about 3.8 cm and the other measuring about 3.5 cm. There is a small amount of posteriorly layering free pelvic fluid. Trace amount of fluid is also present in the anterior right pelvis and there are minor generalized inflammatory changes indicated by hazy fat in the right pelvis. Miscellaneous: No inguinal hernias or adenopathy. Bones: No suspicious bony lesions. No vertebral body compression fractures. IMPRESSION: 1. Generalized right pelvic inflammatory changes surrounding 2 dominant cystic masses in the right upper posterior adnexa, likely associated with the right ovary. This may indicate hemorrhagic cyst, ruptured ovarian cyst, endometriosis, or potentially ovarian torsion. A pelvic ultrasound with Doppler is recommended for further evaluation of the right adnexa. 2. 3.2 cm left ovarian dermoid. 3. Intrauterine device in place. 4. Mild urinary bladder wall thickening, likely reactive. Dictated by: Kymberly Dixon M.D. on 08/06/2019 at 9:36 Approved by: Kymberly Dixon M.D. on 08/06/2019 at 9:46
[2019-08-06 09:31] LABS: Amorphous Sediment Urine 2+; Bacteria Urine Few (2-10); Culture Indicated Urine Cult Not Indicated; Squamous Epithelial Cell Urine 10-30 /HPF (0-5/HPF); WBC Urine 0-1/HPF (0-5/HPF)
--- NOTE | 2019-08-06 10:06 | DI.US.S_ITS ---
PROCEDURE: US PELVIC COMPLETE INDICATIONS: INFLAMMATORY CHANGES ON CT, US RECOMMENDED TECHNIQUE: Real-time scanning was performed of the pelvic organs, with image documentation. Additional endovaginal scanning was necessary due to incomplete visualization of the adnexal and endometrial structures by transabdominal scanning. COMPARISON: [facility], US, PELVIC COMPLETE, 09/07/2009, 3:29. FINDINGS: Transabdominal scanning: Limited scanning through the kidneys shows no hydronephrosis. No pathologic free abdominal or pelvic fluid. Anteverted, slightly retroflexed uterus secondary to a distended urinary bladder. Uterine morphology is normal and an IUD is in appropriate position. Complex mass is seen posterior to the lower uterine segment. Hyperechoic left adnexal mass is present. Endovaginal scanning: Uterus: Uterus is normal in size at 11.0 x 4.4 x 5.8 cm. there are 2 myometrial masses, one in the posterior mid body measuring 1.6 cm and one in the right anterior mid body measuring 1.6 cm. The endometrium measures 4 mm in combined thickness. IUD position is appropriate. Ovaries: The right ovary measures 6.1 x 3.2 x 3.0 cm. There are 2 discrete complex cystic structures with numerous fine internal septations, and no internal vascular flow. The larger measures 4.6 x 2.3 x 3.4 cm and the smaller measures 4.2 x 3.0 x 2.5 cm. There is normal arterial and venous flow is seen in the normal ovarian tissue. The left ovary measures 4.6 x 2.4 x 2.8 cm and contains a hyperechoic mass measuring 3.5 x 2.9 x 2.5 cm. A few other subcentimeter ovarian follicles are seen. There is normal vascular flow in the left ovary. Small to moderate amount of simple fluid in the pelvis. IMPRESSION: 1. No evidence of ovarian torsion. 2. 2 complex, avascular cystic structures within the right ovary measuring 4.6 and 4.2 cm. These are most likely hemorrhagic cysts, although differential diagnosis includes endometriomas, less likely ovarian abscesses. Followup ultrasound in 6-8 weeks is recommended to assess for change or resolution. 3. 3.5 cm left ovarian dermoid. 4. IUD in satisfactory position. 5. 2 small uterine fibroids. Dictated by: Kymberly Dixon M.D. on 08/06/2019 at 11:49 Approved by: Kymberly Dixon M.D. on 08/06/2019 at 11:58
[2019-08-06 10:11] VITALS: BP 164/117; PULSE 87; RESP 18; O2SAT 97
[2019-08-06 12:36] VITALS: BP 137/99; PULSE 86; RESP 20; O2SAT 100
== END 2019-08-06 12:52 | disposition home or self-care (01) ==
PROVIDERS: Emergency Provider Emergency Medicine
DX: N83.201 Unspecified ovarian cyst, right side (principal); D25.9 Leiomyoma of uterus, unspecified
CPT/HCPCS: 36415; 74177; 76830; 76856; 80053; 81003; 81015; 81025; 83690; 85025; 85610; 85730; 93005; 93010; 96360; 96361; 99284; 99285; Q9967

== ENCOUNTER 2021-01-21 13:18 | Emergency (ER) | payer OTHER, MEDICAID, SELFPAY ==
[2021-01-21] VITALS (8 sets, daily range): BP systolic 151–177; BP diastolic 101–126; PULSE 80–100; RESP 12–34; TEMP 36.9; O2SAT 97–100; BMI 28.7
--- NOTE | 2021-01-21 14:37 | ED.CHESTPAIN ---
HPI - Chest Pain General Chief Complaint: Chest Pain Stated Complaint: high BP, heart is pounding Time Seen by Provider: 01/21/21 13:22 Source: patient Mode of arrival: Ambulatory Limitations: no limitations History of Present Illness HPI narrative: 35-year-old female with a prior history of high blood pressure. Has been on medications in the past but she lost her housing and was homeless for a short period of time and in that transition lost all of her medications. She states she does take her blood pressure at home and her systolic blood pressure runs in the 150s. She is unsure what her diastolic pressure is. She does occasionally have palpitations and she had this palpitations earlier today but the time my evaluation those were resolved. She has no shortness of breath. No lower extremity swelling. She has a prior history of methamphetamine abuse but has not used any of this substance in the past 5 weeks. Related Data Previous Rx's Medication Instructions Recorded amlodipine 5 mg PO DAILY #30 tab 08/03/19 lisinopril 10 mg PO DAILY #30 tab 01/21/21 Allergies Allergy/AdvReac Type Severity Reaction Status Date / Time No Known Drug Allergies Allergy Verified 01/21/21 13:37 Review of Systems Constitutional Constitutional: Denies headache(s) Eyes Comments: Occasionally sees black spots but not now ENT Ears, Nose, Mouth, and Throat: Denies headache(s) Cardiovascular Cardiovascular: Denies chest pain, Reports rapid heart rate and Denies dyspnea Respiratory Respiratory: Denies dyspnea Gastrointestinal Gastrointestinal: Reports system reviewed and no additional complaints, except as documented Musculoskeletal Musculoskeletal: Reports system reviewed and no additional complaints, except as documented Integumentary/Breasts Skin/Breast: Reports system reviewed and no additional complaints, except as documented Neurologic Neurologic: Denies headache(s) Hematologic/Lymphatic Hematologic/Lymphatic: Reports system reviewed and no additional complaints, except as documented Allergic/Immunologic Allergic/Immunologic: Reports system reviewed and no additional complaints, except as documented Patient History Medical History (Updated 01/21/21 @ 15:21 by Landry Avelar DO) Healthy female adult Surgical History History of D&C Family History Other Family history non-contributory Social History Smoking Status: Current every day smoker Smoking Status: Current every day smoker alcohol intake frequency: 0-2 drinks per day Substance Use Type: methamphetamine Exam Initial Vital Signs Initial Vital Signs: Vital Signs Temperature 98.5 F 01/21/21 13:30 Pulse Rate 100 H 01/21/21 13:30 Respiratory Rate 22 01/21/21 13:30 Blood Pressure 171/115 H 01/21/21 13:30 Pulse Oximetry 100 01/21/21 13:30 Const General: cooperative and comfortable HENMT Head: normal to inspection and normocephalic Resp Effort & Inspection: normal respiratory effort Auscultation: clear to auscultation bilaterally Cardio Rate: regular rate Rhythm: regular rhythm GI Inspection: non-distended Palpation: soft Skin Lesions: no lesions Rashes: no rashes Neuro General: patient alert and patient awake Cognition: normal cognition Speech: speech normal Extrem General: normal to inspection Psych Appearance: grossly normal and well kempt Course Orders Ordered: ED Orders 01/21/21 13:22 EKG-12 Lead Stat 01/21/21 14:37 Consult to [employer] - [employer] Stat Discontinued Medications Lisinopril (Lisinopril 10 Mg Tablet) 10 mg PO NOW ONE Stop: 01/21/21 14:38 Last Admin: 01/21/21 15:00 Dose: 10 mg Documented by: ANNA Vital Signs Vital signs: Vital Signs - 8 hr 01/21/21 13:30 01/21/21 15:00 Temperature 98.5 F Pulse Rate 100 H 84 Respiratory Rate 22 Blood Pressure 171/115 H 168/111 H Pulse Oximetry 100 MDM - Chest Pain ECG Data Attestation: I personally reviewed and interpreted this ECG as follows: Prior ECG tracings: not available for review Interpretation: Sinus rhythm Ventricular rate 84 Normal axis Normal QRS Normal QTC No ST T wave changes MDM Narrative Medical decision making narrative: Patient has normal EKG. She is hypertensive but no indication of any end-organ dysfunction. Will start her back on her lisinopril. We will started low-dose and she was informed that she potentially needs to up titrate this depending on what her blood pressures run at home after starting his medication. She was encouraged to continue to take her blood pressures at home. She was seen by social work as she is having some housing issues and also needs some assistance with finding a primary provider. Patient is safe for discharge home without further workup. She was given return precautions. She expressed understanding and agreement. Discharge Plan Departure Patient Disposition: Home Clinical Impression: Hypertension, Palpitations Instructions: Essential Hypertension Activity Restrictions/Additional Instructions: I recommend that you start taking your blood pressure medication as directed. Continue to take your blood pressure at home and record the numbers as you may need to increase the dose of the medicine that you are taking. There is a health resource is coordinator here at the hospital. The phone numbers [phone]. This individual can help you establish a primary provider. Return to the emergency department for any new or worsening symptoms Prescriptions: New lisinopril 10 mg tablet 10 mg PO DAILY Qty: 30 RF: 3 No Action amlodipine 5 mg tablet 5 mg PO DAILY Qty: 30 RF: 0
[2021-01-21] MEDS: lisinopriL 10 MG TABLET PO (15:00)
--- NOTE | 2021-01-21 16:13 | CM.SWNOTE ---
DELIVERY STOCK CLERK Note DELIVERY STOCK CLERK receives consult and meets with patient. Patient is 35 y/o female presents to this ED with concern of high BP and heart rate. Patient is A/O x 4, reports that she and her 10 year old son are currently homeless and couch surfing. Patient reports she would like to move to [place] and access resources and housing there. Patient states that she is court involved due to a DWSL 3rd degree charge twice and a criminal trespassing charge. Patient reports she is in the [employer] program with a disease case manager from [facility] (Ph. # [phone]). Patient states she is to do community service, a MH evaluation, and engage in AA and she will graduate from the program in April 2021. Patient states she is 5 weeks and 3 days clean from Methamphetamine and reports that she feels great and has no desire to use drugs again. Patient states she never exposed her son to her drug use. Patient states that [place] is a trigger and she would like to move out of the area for better opportunities for herself and her son. Patient states that her partner Fermín 5 years ago and she used Methamphetamine daily after his loss. Patient states she is motivated to not use substances because her boyfriend is on work release and she needs to be clean and sober in order to reside with him. Patient states she is on unemployment and her son receives survivor benefits from the loss of his father. DELIVERY STOCK CLERK calls disease case manager [place] and leaves requesting return call. Patient fills out application for housing, DELIVERY STOCK CLERK faxes patient's application to [facility] in [place], [place]. DELIVERY STOCK CLERK provides patient with resources in [facility]. Patient to d/c to home when medically clear.
== END 2021-01-21 15:51 | disposition home or self-care (01) ==
PROVIDERS: Emergency Provider Emergency Medicine
DX: I10 Essential (primary) hypertension (principal); R00.2 Palpitations
CPT/HCPCS: 93005; 99283

== ENCOUNTER 2024-04-02 23:07 | Emergency (ER) | payer OTHER, MEDICAID, SELFPAY ==
[2024-04-02 23:19] VITALS: BP 176/138; PULSE 98; RESP 14; TEMP 37.3; O2SAT 98; BMI 22.7
[2024-04-03 01:00] VITALS: BP 135/78; PULSE 75; RESP 18; O2SAT 98
--- NOTE | 2024-04-03 01:52 | ED_ITS ---
HPI - Fall General Chief Complaint: Fall Stated Complaint: slipped and fell in shower Time Seen by Provider: 04/03/24 01:33 Source: patient, RN notes reviewed and old records reviewed Mode of arrival: Ambulatory Limitations: no limitations History of Present Illness HPI Narrative: 38-year-old female history of methamphetamine abuse, hypertension who presents with complaint of neck pain and headache. Patient states she slipped and fell in the shower at about 8:00 a.m. this evening. She states she was getting out of the shower when it happened. She describes pain in her middle of her neck. She states she may have had loss of consciousness. She denies any confusion. No nausea or vomiting. No new numbness tingling or weakness. She is some chronic numbness in her hands and feet normally. No chest pain or shortness of breath. No loss of bowel or bladder control. No new GI or urinary symptoms. Patient has been ambulating without issue. Patient states she has not taking any daily medications. States no prior surgeries. States she is broken her neck in the past from a fall but was not found until many months later. Patient states she uses tobacco daily, does drink alcohol uses methamphetamines states last use was in the last 24 hours. Related Data Previous Rx's Medication Instructions Recorded amlodipine 5 mg tablet 5 mg PO DAILY #30 tabs 08/03/19 lisinopril 10 mg tablet 10 mg PO DAILY #30 tabs 01/21/21 Allergies Allergy/AdvReac Type Severity Reaction Status Date / Time No Known Drug Allergies Allergy Verified 01/21/21 13:37 Review of Systems Review of Systems ROS Unobtainable: All systems reviewed & are unremarkable except as noted in HPI and below Patient History Medical History (Updated 04/03/24 @ 02:43 by Rosa Cha DO) Healthy female adult Surgical History History of D&C Family History Other Family history non-contributory Social History Smoking Status: Current every day smoker Smoking Status: Current every day smoker alcohol intake frequency: 0-2 drinks per day Substance Use Type: methamphetamine Exam Narrative Exam Narrative: GEN: Patient appears in mild distress. HEAD: No evidence of trauma, no raccoon/Mederos sign. NECK: Patient has tenderness on all of her cervical spine, she has painless range of motion, trachea midline Positive Nexus criteria, midline line tenderness, no distracting injury, altered mental status, neuro deficit, recent EtOH. EYES: PERRLA, EOMI ENT: External inspection normal, trachea is midline, TM's are normal no hemotypanum, Nares are clear, no septal hematoma, no dental or oral injury, airway is normal and with normal occlusion, No bony tenderness RESP: Chest is nontender and has symmetric movement, no ecchymosis, breath sounds are normal no crackles, wheezes or rales CVS: Heart sounds are normal, no murmur noted, No JVD. ABG/GI: Nontender, soft, normal bowel sounds, no distention, no organomegaly. NEURO: Oriented AOx3, neuro is grossly intact, sensation and motor is normal all 4 extremities moving, cranial nerves II through XII are intact, GCS is 15 PSYCH: Normal mood and affect SKIN: Intact, warm and dry, no crepitus and without decubitus BACK: No CVA tenderness, no vertebral tenderness, no step-off's, no crepitus EXT: Atraumatic, nontender, normal range of motion. Normal gait. Initial Vital Signs Initial Vital Signs: Vital Signs Temperature 99.1 F 04/02/24 23:19 Pulse Rate 98 H 04/02/24 23:19 Respiratory Rate 14 04/02/24 23:19 Blood Pressure 176/138 H 04/02/24 23:19 Pulse Oximetry 98 04/02/24 23:19 Oxygen Delivery Method Room Air 04/02/24 23:19 Course Orders Ordered: ED Orders 04/03/24 02:01 CT cervical spine wo con Stat CT head/brain wo con Stat Vital Signs Vital signs: Vital Signs - 8 hr 04/02/24 23:19 04/03/24 01:00 04/03/24 02:00 Temperature 99.1 F Pulse Rate 98 H 75 74 Respiratory Rate 14 18 19 Blood Pressure 176/138 H 135/78 145/78 H Pulse Oximetry 98 98 98 Oxygen Delivery Method Room Air Room Air Room Air 04/03/24 03:00 Temperature 99.2 F Pulse Rate 85 Respiratory Rate 16 Blood Pressure 134/85 Pulse Oximetry 98 Oxygen Delivery Method Room Air MDM - Fall Lab Data Labs: Point of Care Testing Test Results Negative Urine Dip Bedside Urine Glucose Negative Bedside Urine Bilirubin - Negative Bedside Urine Ketone - Negative Urine Specific [place] 1.010 Bedside Urine Occult Blood - Negative Bedside Urine pH 6.0 Bedside Urine Protein - Negative Bedside Urine Urobilinogen - Negative Bedside Urine Nitrite - Negative Bedside Urine Leukocytes - Negative Esterase MDM Narrative Medical decision making narrative: 38-year-old female with no daily anticoagulation who states she had a slip and fall in the shower, describes possible loss of consciousness headache describes midline vertebral neck pain of the cervical spine mildly tender overall cervical vertebral bodies patient does have good range of motion without pain. States she is some chronic numbness and tingling in her hands and feet but no other new acute neurologic changes. Point of care is negative. Point of care urine is negative. 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 Head CT shows no acute intracranial change, no bleed, no fracture. Spoke with Dr. Walker reviewed patient's findings. Notes is likely benign. Patient describes some paresthesias but an all her arms and legs. No other acute changes. Information was relayed to patient to follow-up both with her thyroid and possible nerve sheath tumor. Relayed all this to patient. Patient does not have primary care was given contact for local primary care physicians as well as Orthopedic surgery to follow up as needed. Patient isn't currently having any symptoms related to potential nerve sheath tumor. Discharge Plan Departure Patient Disposition: Home Clinical Impression: Neck pain, Fall, Thyroid nodule, Nerve sheath tumor Instructions: DI for Thyroid Nodule Activity Restrictions/Additional Instructions: Your imaging today incidentally shows a left thyroid nodule, recommended to have this follow up with a thyroid ultrasound. There is also possibly a nerve sheath tumor at the left C5 neural foramina, this should be followed up if you are having any new pain, numbness, tingling or weakness of your upper extremity particularly on the left side. You can follow up with Orthopedic surgery as needed for this. Please call to set up follow-up there is contact for Orthopedic surgery below. There is also a card with primary care providers included in your paperwork. You do have arthritic changes on your cervical spine but no breaks or fractures on your CT imaging. Please return for altered mental status, sudden worsening of symptoms, per sistent vomiting, new loss of bowel or bladder control, new weakness, numbness or paresthesias, passing out or other new or concerning changes. Prescriptions: No Action amlodipine 5 mg tablet 5 mg PO DAILY Qty: 30 0RF Patient Comments: patient states has not picked up medication yet. ordered in ED on 08/03 lisinopril 10 mg tablet 10 mg PO DAILY Qty: 30 3RF Referrals: Valentina Walker MD [Physician] - Stand Alone Forms: Patient Portal/API
[2024-04-03 02:00] VITALS: BP 145/78; PULSE 74; RESP 19; O2SAT 98
--- NOTE | 2024-04-03 02:01 | DI.CT.S_ITS ---
PROCEDURE: CT CERVICAL SPINE WO CON INDICATIONS: fell in shower, hit neck/head, cervical pain TECHNIQUE: Noncontrast 3 mm thick sections acquired from the skull base to the T4 level. Sagittal and coronal reformats were then constructed. For radiation dose reduction, the following was used: automated exposure control, adjustment of mA and/or kV according to patient size. COMPARISON: None. FINDINGS: Image quality: Excellent. Bones: No fractures or dislocations. Cervical spondylosis. Reversal of normal lordotic curve of the cervical spine. Chronic disc height loss C4-C5 through C6-C7. Uncovertebral joint osteophytes at these levels. Visualized superior ribs are intact. Soft tissues: Prevertebral soft tissues are normal in thickness. No paravertebral hematomas. No apical pneumothoraces. Poor dentition. IMPRESSION: 1. No acute cervical fracture or dislocation. 2. Cervical spondylosis. 3. Poor dentition. Comment: Final report is concordant with preliminary interpretation provided by [facility]. Dictated by: Alex Cabrera M.D. on 04/03/2024 at 7:37 Approved by: Alex Cabrera M.D. on 04/03/2024 at 7:39
--- NOTE | 2024-04-03 02:01 | DI.CT.S_ITS ---
PROCEDURE: CT HEAD/BRAIN WO CON INDICATIONS: fell in shower, hit neck/head, cervical pain TECHNIQUE: Noncontrast 4.5 mm thick angled axial sections acquired from the foramen magnum to the vertex, with coronal and sagittal reformats. For radiation dose reduction, the following was used: automated exposure control, adjustment of mA and/or kV according to patient size. COMPARISON: None. FINDINGS: Image quality: Diagnostic. CSF spaces: Basal cisterns are patent. No extra-axial fluid collections. Ventricles are normal in size and shape. Brain: No midline shift. No intracranial masses or hemorrhage. Castro-white matter interface is normal. Skull and face: Calvarium and visualized facial bones are intact, without suspicious lesions. Sinuses: Visualized sinuses and mastoids are clear. IMPRESSION: No evidence acute intracranial process. Comment: Final report is concordant with preliminary interpretation provided by [facility]. Dictated by: Alex Cabrera M.D. on 04/03/2024 at 7:36 Approved by: Alex Cabrera M.D. on 04/03/2024 at 7:36
[2024-04-03 03:00] VITALS: BP 134/85; PULSE 85; RESP 16; TEMP 37.3; O2SAT 98
== END 2024-04-03 03:02 | disposition home or self-care (01) ==
PROVIDERS: Emergency Provider Emergency Medicine
DX: D49.2 Neoplasm of unspecified behavior of bone, soft tissue, and skin (principal); E04.1 Nontoxic single thyroid nodule; S09.90XA Unspecified injury of head, initial encounter; M54.2 Cervicalgia; W01.0XXA Fall on same level from slipping, tripping and stumbling without subsequent striking against object, initial encounter
CPT/HCPCS: 70450; 72125; 81003; 81025; 99282; 99284